=== PATIENT | male | born 1950 | race Caucasian/White ===

== ENCOUNTER 2016-07-26 15:04 | Inpatient (IN) | payer MEDICARE ==
[~2016-07-26] VITALS: Ht 180.3 cm; Wt 101.0 kg
--- NOTE | 2016-07-26 16:22 | REP ---
CT HEAD WITHOUT CONTRAST: HISTORY: Trauma. Areas of decreased attentuation are present in the periventricular and subcortical white matter. This represents small vessel ischemic disease. There is no intraparenchymal hemorrhage, mass, or midline shift. The ventricular system and cortical sulci as well as subarachnoid space and the posterior fossa are dilated consistent with moderate volume loss. There is no extracerebral collection. There is no fracture. The visualized sinuses are clear. IMPRESSION: 1. Small vessel ischemic disease. 2. Moderate volume loss. Signed by Josr Hernandez MD 07/26/2016 04:23 P
--- NOTE | 2016-07-26 16:22 | REP ---
Right knee series: Five views. History: Trauma. Findings: Five views of the right knee demonstrate diffuse osteopenia. There is an osteochondroma projecting posteriorly and medially from the proximal tibial metaphysis. This measures 1.8 cm in greatest dimension. There is vascular calcification. No evidence of erosive change or joint effusion. Impression: Posteromedial proximal tibial metaphyseal osteochondroma. No fracture seen. Signed by Fritz Medina MD 07/26/2016 04:56 P
--- NOTE | 2016-07-26 16:23 | REP ---
AP VIEW OF THE PELVIS: SINGLE VIEW. HISTORY: Trauma. FINDINGS: AP view of the pelvis demonstrates a right external iliac artery metallic stent in place. Vascular calcification is noted. The bony pelvic ring is intact. No pelvic fracture or hip fracture is appreciated. IMPRESSION: No traumatic abnormality is noted. Right external iliac artery stent in place. Signed by Fritz Medina MD 07/26/2016 04:56 P
--- NOTE | 2016-07-26 16:27 | REP ---
CT CERVICAL SPINE WITHOUT CONTRAST: HISTORY: Trauma. There is no acute fracture or subluxation. Disc bulges are present at the C3-4 through C5-6 levels. There is minimal narrowing of the spinal canal. Uncinate process hypertrophy is present at the C5-6 and C6-7 levels. This produces minimal narrowing of the neural foramina. The C5-6 and C6-7 intervertebral discs are decreased in height consistent with disc degeneration. IMPRESSION: 1. There is no acute fracture or subluxation. 2. There is cervical spondylosis at the C3-4 through C6-7 levels. Signed by Josr Hernandez MD 07/26/2016 04:29 P
[2016-07-26 17:48] LABS: BASO % 0.2 % (0.0-1.0); EOS % 0.4 % (0.0-3.0); LARGE UNSTAINED CELL # 0.1 K/mm3 (0.0-0.4); LARGE UNSTAINED CELL % 1.1 % (0.0-4.0); LYMPH # 1.8 K/mm3 (1.5-4.5); LYMPH % 15.2 % (24.0-44.0); MEAN CORPUSCULAR HEMOGLOBIN 28.2 pg (27.0-33.0); MEAN CORPUSCULAR HGB CONC 33.6 g/dl (32.0-36.5); MEAN CORPUSCULAR VOLUME 83.9 fl (80.0-96.0); MONO # 0.7 K/mm3 (0.0-0.8); MONO % 5.5 % (0.0-5.0); NEUTROPHILS # 9.4 K/mm3 (1.8-7.7); NEUTROPHILS % 77.6 % (36.0-66.0); PLATELET COUNT, AUTOMATED 244 k/mm3 (150-450); RED CELL DISTRIBUTION WIDTH 14.6 % (11.5-14.5); WHITE BLOOD COUNT 12.1 K/mm3 (4.0-10.0)
[2016-07-26 18:41] LABS: ALBUMIN 4.6 GM/DL (3.2-5.2); ALKALINE PHOSPHATASE 85 U/L (45-117); ALT/SGPT 31 U/L (12-78); ANION GAP 12 MEQ/L (8-16); AST/SGOT 37 U/L (15-37); BILIRUBIN,DIRECT < 0.1 MG/DL (0.0-0.2); BILIRUBIN,TOTAL 0.4 MG/DL (0.2-1.0); BLOOD UREA NITROGEN 32 MG/DL (7-18); CALCIUM LEVEL 9.8 MG/DL (8.8-10.2); CARBON DIOXIDE LEVEL 22 MEQ/L (21-32); CHLORIDE LEVEL 105 MEQ/L (98-107); CREATININE FOR GFR 1.79 MG/DL (0.70-1.30); GLOMERULAR FILTRATION RATE 40.6 (>49); GLUCOSE, FASTING 114 MG/DL (80-110); POTASSIUM SERUM 4.8 MEQ/L (3.5-5.1); SODIUM LEVEL 139 MEQ/L (136-145); TOTAL PROTEIN 9.2 GM/DL (6.4-8.2)
--- NOTE | 2016-07-26 18:52 | REP ---
RIGHT ANKLE SERIES: Four views of the right ankle are performed. I see no acute fracture or dislocation. The ankle mortise is anatomic. IMPRESSION: No acute fracture or dislocation. Signed by Nestor Dominguez MD 07/26/2016 07:36 P
[2016-07-26] MEDS ORDERED: LEVO50TA45 PO (19:11)
[2016-07-26] MEDS ORDERED: HYDR25TAB PO (19:11)
[2016-07-26] MEDS ORDERED: ASPI325T28 PO (19:11)
[2016-07-26] MEDS ORDERED: AMLO10TA2 PO (19:11)
[2016-07-26] MEDS ORDERED: LISI25TA PO (19:11)
[2016-07-26] MEDS ORDERED: METO5TAB2 PO (19:11)
[2016-07-26] MEDS ORDERED: TYLE500T78 PO (19:11)
[2016-07-26] MEDS ORDERED: COLA100C PO (19:11)
[2016-07-26] MEDS ORDERED: PANT40TA2 PO (19:11)
[2016-07-26] MEDS ORDERED: VITMTA PO (19:11)
[2016-07-26] MEDS ORDERED: METOCLOPRAMIDE 5 MG TAB PO PRN (19:45)
[2016-07-26] MEDS ORDERED: ACETAMINOPHEN TAB 650MG DOSE (2X325MG) PO PRN (19:45)
[2016-07-26] MEDS ORDERED: DOCUSATE SODIUM 100 MG CAP PO PRN (19:45)
[2016-07-26] MEDS ORDERED: ONDANSETRON 4MG/2ML VIAL (J2405) IV PRN (19:45)
--- NOTE | 2016-07-26 20:43 | HPE ---
DATE OF ADMISSION: 07/26/2016 PRIMARY CARE PROVIDER: [facility] in [place]. CHIEF COMPLAINT: Fall. 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 Lives at home alone. The patient was brought in today for multiple falls as per family. The patient has been getting progressively weaker over the past couple of months to the extent that the patient fell three times today. As per patient he fell because his ankle just felt painful and weak. Denies any head trauma, loss of consciousness. As per family, the patient has been deteriorating over the past couple of weeks. Also was incontinent. The family believes that the patient cannot take care of himself and is requesting placement. Other than that the patient denies any back pain, denies any tingling sensation, numbness. Stated that he could go to the bathroom, but he just had stood up. Denies any urinary or bowel incontinence. The patient stated that he fell because of the ankle pain, otherwise denies any weakness. Denies any chest pain, pressure or discomfort. ALLERGIES: No known drug allergy reported. PAST MEDICAL HISTORY: Hypothyroidism. CKD. Hypertension. PAST SURGICAL HISTORY: Left above knee amputation due to gangrene as per patient. SOCIAL HISTORY: Former smoker. Quit smoking 4 years ago. One pack per day for 18 to 20 years. Denies alcohol drinking. Lives at home alone. FAMILY HISTORY: Noncontributory. REVIEW OF SYSTEMS: Denies any headache, lightheadedness, vision change, hearing change. Denies any shortness of breath, nausea or vomiting. Denies any chest pain, pressure or discomfort. Denies any neck pain. Denies any back pain. Reported left ankle pain. Denies any abdominal pain, diarrhea, or constipation. As per family reported urinary incontinence. Denies any cough, shortness of breath. Denies any bleeding, bruising. Denies any urinary complaints. HOME MEDICATION: - acetaminophen 500 mg by mouth every 6 hours as needed - Norvasc 10 mg by mouth daily - aspirin 325 mg by mouth daily - Colace 100 mg by mouth twice a day - hydrochlorothiazide 25 mg by mouth daily - levothyroxine 50 mcg by mouth daily - lisinopril 2.5 mg by mouth daily - Reglan 5 mg by mouth four times a day as needed as needed - multivitamin 1 tablet by mouth daily - Protonix 40 mg by mouth daily PHYSICAL EXAMINATION: Orthostatic. The patient's orthostatic has been negative. VITAL SIGNS: Blood pressure 145/65, pulse 86, respirations 16, temperature 99, pulse oximetry 95% on room air. GENERAL: The patient alert, oriented times three. In no acute distress. HEENT: Normocephalic, atraumatic. NECK: Supple. PULMONARY: Bilateral clear to auscultation. CARDIAC: Regular rate and rhythm. Normal S1, S2. ABDOMEN: Soft, nontender, nondistended. . EXTREMITIES: Left above knee amputation. Stump clean, dry and intact. Right lower extremity straight leg test negative. Able to move right lower extremity. Right ankle as per patient is slightly swollen but no erythema or warmth detected. EKG: Sinus rhythm is 78. LABORATORY DATA: WBC 12.1, hemoglobin and hematocrit 14.4/42.7, platelets 244. Chemistry: Sodium 139, potassium 4.8, chloride 105, bicarbonate 22, BUN 32, creatinine 1.79, troponin negative times one. ASSESSMENT AND PLAN: This is a 66-year-old male patient with underlying medical history of hyperthyroidism, hypertension and CKD, admitted with acute on chronic renal failure. 1. Acute on chronic renal failure. Baseline creatinine as per our records 1.2. IV fluids for hydration, also ultrasound of the kidneys. Followup UA. Holding angiotensin-converting enzyme (PHILIPPE) inhibitor and hydrochlorothiazide. 2. Leukocytosis. Possible secondary to dehydration. WBC of 12. The patient has no other source of infection. Will get an x-ray of the chest. Followup blood culture. UA urine culture. Withholding antibiotic until a source of infection is established. IV fluids for hydration in the meantime. Followup C-reactive protein tomorrow. 3. Fall. Possible secondary to ankle pain versus alternative. Orthostatic is negative in the emergency department. IV fluids for hydration. Physical therapy. Patient and Family Services (PFS) consulted. Potentially need placement. 4. Hypothyroidism. Followup thyroid panel. Continue home medication. 5. Peripheral vascular disease. The patient has a history of left above knee amputation. Continue aspirin. Continue to follow. 6. Hypertension. Continue Norvasc. Withholding PHILIPPE inhibitor and hydrochlorothiazide given the patient with fall and given the patient was acute on chronic renal failure. Monitor blood pressure. Adjust medication as needed. 7. Deep venous thrombosis (DVT) prophylaxis. Heparin subcutaneous. 8. Right ankle pain. X-ray has been negative for fracture. Will obtain MRI. Continue physical therapy. Pain regimen as prescribed. DISPOSITION PLANNING: The patient has very poor venous access. Ultrasound used for guidance to put a IV on the patient's right peripheral cephalic vein. Will need a PICC line placement tomorrow. Likely PFS consulted. Likely needs placement.
--- NOTE | 2016-07-26 20:50 | EDDOCDS ---
Physician Documentation [facility] Name: Rl Ribera Age: 66 yrs Sex: Male : 1950 Arrival Date: 07/26/2016 Time: 15:04 Bed 14 Private MD: Disposition: 07/26/16 19:28 Hospitalization ordered by Desire Jeter for Inpatient Admission. Preliminary diagnosis is Weakness - Acute Kidney Injury. - Bed requested for 4 [place]. - Status is Inpatient Admission. ttb - Condition is Stable. - Problem is new. - Symptoms are unchanged. Historical: - Allergies: no known allergies; - Home Meds: 1. metoclopramide HCl 5 mg Oral tab 1 tab once daily (Last dose: 07/26/2016 08:00) 2. multivitamin Oral cap 1 tablet daily (Last dose: 07/26/2016 08:00) 3. hydrochlorothiazide 25 mg Oral tab 1 tab once daily (Last dose: 07/26/2016 08:00) 4. amlodipine 10 mg Oral tab 1 tab once daily (Last dose: 07/26/2016 08:00) 5. aspirin 325 mg Oral tab 1 tab once daily (Last dose: 07/26/2016 08:00) 6. lisinopril 5 mg Oral tab 1 tab once daily (Last dose: 07/26/2016 08:00) 7. levothyroxine 50 mcg Oral cap 1 cap once daily (Last dose: 07/26/2016 07:00) - PMHx: Hypothyroidism; Hypertension; - PSHx: AKA- Left; - Social history: Smoking status: Patient states former smoker of tobacco. Patient/guardian denies using alcohol, the patient reports quitting approximately [address], [address] drugs, No barriers to communication noted, The patient speaks fluent Romanian, Speaks appropriately for age. - Family history: Not pertinent. - : The pt / caregiver states he / she is not on anticoagulants. Home medication list is obtained from the patient. - Exposure Risk Screening:: None identified. - History obtained from: brother. Vital Signs: 07/26 15:16 BP 145 / 65 (auto/); ttb 15:17 Pulse 86 MON; Resp 18 S; Temp 99.0(O); Pulse Ox 95% ; Pain 2/10; ttb 15:30 Pulse 80 MON; Pulse Ox 94% on R/A; ttb 15:32 Pulse 80 MON; Pulse Ox 96% ; ttb 16:45 Pulse 78 MON; ttb 17:44 BP 113 / 55 Supine (auto/); ttb 17:47 Pulse 82 MON; Resp 18; Pulse Ox 96% on R/A; ttb 17:47 BP 156 / 66 Sitting (auto/); ttb 18:00 Pulse 90 MON; Pulse Ox 94% on R/A; ttb 18:30 Pulse 90 MON; ttb 19:00 Pulse 88 MON; Pulse Ox 93% ; ttb 19:30 Pulse 80 MON; Pulse Ox 93% ; ttb 20:03 BP 161 / 89 (auto/); ttb 20:03 Pulse 82 MON; Resp 18; Pulse Ox 93% on R/A; Pain 0/10; ttb 20:33 BP 156 / 72 (auto/); ttb 20:33 Pulse 84 MON; Pulse Ox 93% ; ttb 20:36 Pulse 84 MON; Resp 18; Temp 99.8(O); Pulse Ox 93% on R/A; Pain 0/10; ttb 20:45 BP 140 / 63; Pulse 86 MON; ttb MDM: 15:20 IV Saline Lock ordered. br1 15:20 Orthostatic VS ordered. br1 15:20 Cupola Man/Pulse Ox/q 30 min VS ordered. br1 15:21 CBC with Diff Ordered. EDMS 15:21 BMP Ordered. EDMS 15:21 Liver Profile Ordered. EDMS 15:21 Troponin Ordered. EDMS 15:21 ECG WITH READING ER PHYS+CARDIAG ordered. EDMS 15:21 Pelvis Ordered. EDMS 15:22 Knee, Complete Ordered. EDMS 15:22 Ankle, Complete Ordered. EDMS 15:33 CT Head Without Contrast Ordered. EDMS 15:33 CT Spine,Cervical W/o Contrast Ordered. EDMS 15:33 Misc. Nursing Order ordered. br1 17:58 CBC with Diff Reviewed. br1 17:58 Pelvis Reviewed. br1 17:58 Knee, Complete Reviewed. br1 17:58 CT Head Without Contrast Reviewed. br1 17:58 CT Spine,Cervical W/o Contrast Reviewed. br1 18:08 Urinalysis Ordered. EDMS 18:08 Urine Culture Ordered. EDMS 18:09 Consult PFS/PSA/Shelter Case Manager ordered. br1 18:10 BED REQUEST+ADM ordered. EDMS 18:44 BMP Reviewed. br1 18:44 Liver Profile Reviewed. br1 18:44 Troponin Reviewed. br1 19:03 [facility] Payment Agreement was scanned into [employer] and attached to record. gjb 19:03 Financial registration complete. gjb 19:45 BLOOD CULTURES Ordered. EDMS 19:45 MRI FOOT WITHOUT CONTRAST Ordered. EDMS 19:46 PHYSICAL THERAPY EVAL & TREAT ordered. EDMS 19:46 PICC LINE INSERTION W/SITERITE Ordered. EDMS 19:46 RENAL US Ordered. EDMS 19:47 THYROID PROFILE Ordered. EDMS 19:47 C REACTIVE PROTEIN QUANTITATIV Ordered. EDMS 19:47 COMPLETE BLOOD COUNT Ordered. EDMS 19:47 BASIC METABOLIC PROFILE Ordered. EDMS 19:47 MAGNESIUM LEVEL Ordered. EDMS 19:49 Admission / Observation Status ordered. EDMS 19:49 LOW FAT LOW CHOLESTEROL DIET ordered. EDMS 20:12 Chest, 2 view PA, Lat Ordered. EDMS Signatures: Dispatcher [employer] EDMS Chris Gaspar MD MD br1 Deborah Frnech, THREAD INSPECTOR THREAD INSPECTOR ar3 Raven Cabrera, RN RN ttClaribel Rudd The chart was reviewed and I authenticate all verbal orders and agree with the evaluation and treatment provided.Attachments: 19:03 [facility] Payment Agreement gjb MTDD
--- NOTE | 2016-07-26 20:50 | REPUSA ---
CLINICAL HISTORY: Acute on chronic kidney failure . TECHNIQUE: Realtime sonographic images were obtained in multiple projections. COMMENTS: The right kidney measures 11.5 cm and the left kidney measures 11.2 cm. Both kidneys are free of hydr onephrosis. There is no evidence of solid mass. 5.4 cm right lower pole simple appearing cyst. There is no perinephric fluid. There is no renal calculus. IMPRESSION: No stones or hydronephrosis. 5.4 cm right lower pole cyst. Thank you for your kind referral of this patient.
--- NOTE | 2016-07-26 20:51 | EDDOCDS ---
Nurse's Notes [facility] Name: Rl Ribera Age: 66 yrs Sex: Male : 1950 Arrival Date: 07/26/2016 Time: 15:04 Bed 14 Private MD: Diagnosis: Weakness-Acute Kidney Injury Presentation: 07/26 15:09 Presenting complaint: EMS states: weakness to right leg. Pt on floor upon EMS arrival. ttb Denies pain. Fell onto floor with no LOC. No neuro deficits. The last date and time the patient was known to be well was was at an unknown time on an unknown date. No acute neurological deficit is noted. Pre-hospital glucose is not applicable to this patient. Adult Sepsis Screening: The patient does not have new or worsening altered mentation. 15:09 Acuity: SAMMI Level 3 ttb 15:10 Adult Sepsis Screening: Patient's respiratory rate is less than 22. Systolic blood ttb pressure is greater than 100. Patient has a qSOFA score of 0- Negative Sepsis Screen. Suicide/Homicide risk assessment- the patient denies having any suicidal and/or homicidal ideations and does not present with any other emotional, behavioral or mental health complaints. Status: Patient is not a government services professional or dependent. Transition of care: patient was not received from another setting of care. 17:39 Method Of Arrival: Ambulance ttb Triage Assessment: 15:35 The onset of the patients symptoms was at an unknown time. General: Appears in no ttb apparent distress, obese, unkempt, Behavior is appropriate for age, cooperative, pleasant, quiet. Pain: Location: right ankle. Neurological: Level of Consciousness is awake, alert, Oriented to person, place, time, Padded Box Sewer are equal bilaterally Moves all extremities. Speech is normal, Facial symmetry appears normal, Pupils are constricted, Reports weakness. Cardiovascular: Heart tones S1 S2 present Rhythm is sinus rhythm Chest pain is denied. Respiratory: Airway is patent Respiratory effort is even, unlabored, Denies cough, shortness of breath. GI: Denies nausea, vomiting, pain. : Parent/caregiver report the patient having incontinence. Derm: Skin is normal. Injury Description: pt fell from standing. Historical: - Allergies: no known allergies; - Home Meds: 1. metoclopramide HCl 5 mg Oral tab 1 tab once daily (Last dose: 07/26/2016 08:00) 2. multivitamin Oral cap 1 tablet daily (Last dose: 07/26/2016 08:00) 3. hydrochlorothiazide 25 mg Oral tab 1 tab once daily (Last dose: 07/26/2016 08:00) 4. amlodipine 10 mg Oral tab 1 tab once daily (Last dose: 07/26/2016 08:00) 5. aspirin 325 mg Oral tab 1 tab once daily (Last dose: 07/26/2016 08:00) 6. lisinopril 5 mg Oral tab 1 tab once daily (Last dose: 07/26/2016 08:00) 7. levothyroxine 50 mcg Oral cap 1 cap once daily (Last dose: 07/26/2016 07:00) - PMHx: Hypothyroidism; Hypertension; - PSHx: AKA- Left; - Social history: Smoking status: Patient states former smoker of tobacco. Patient/guardian denies using alcohol, the patient reports quitting approximately [address], [address] drugs, No barriers to communication noted, The patient speaks fluent [place], Speaks appropriately for age. - Family history: Not pertinent. - : The pt / caregiver states he / she is not on anticoagulants. Home medication list is obtained from the patient. - Exposure Risk Screening:: None identified. - History obtained from: brother. Screenin:37 Screening information is obtained from the patient. Fall risk: At risk due to age, ttb apparent cognitive impairment, gait disturbance, immobility, injury, prior history of falls, The following interventions are performed due to a positive Fall Risk Screen: Fall Risk is added to Special Handling on the patient Summary Screen. A Fall Risk Bracelet was applied to the patient. Side Rails are placed in the up position. A Call Herrera is given with instruction to call for help when getting out of bed. Assistance ADL's: Requires assistance with meal preparation, this assistance is provided by bathing, assistance is provided by dressing, assistance is provided by toileting, assistance is provided by ambulation, assistance is provided by housework, assistance is provided by medication administration, assistance is provided by Public Health nurses. Abuse/DV Screen: The patient / caregiver reports he/she is: not in a situation that causes fear, pain or injury. Nutritional screening: No deficits noted. Advance Directives: Currently, there is no health care proxy. home support is inadequate. Assessment: 15:15 Adult Sepsis Screening: The patient does not have new or worsening altered mentation. ttb Patient's respiratory rate is less than 22. Systolic blood pressure is greater than 100. Patient has a qSOFA score of 0- Negative Sepsis Screen. General: MD in with pt at this time. NAD noted. Pt answering questions appropriately. Resting on stretcher. . 15:37 General: pt taken to imaging at this time.. ttb 16:28 Reassessment: Patient appears in no apparent distress at this time. pt resting on ttb stretcher. IV attempts at this time have been unsuccessful. Brother at bedside. NAD noted.. Neurological: Level of Consciousness is awake, alert. Respiratory: Airway is patent Respiratory effort is even, unlabored. Derm:. Derm: skin tear to left arm -- no bleeding upon arrival. Minimal swelling. 17:00 Reassessment: Patient appears in no apparent distress at this time. pt continues to ttb rest on stretcher. Brother at bedside. NAD noted. SR on monitor. Lab contacted to draw labs. . 17:00 General: Appears in no apparent distress, comfortable. Pain: Denies pain. Neurological: ttb Level of Consciousness is awake, alert. Respiratory: Airway is patent Respiratory effort is even, unlabored. 17:30 General: lab successful with lab draws. No IV access at this time. aware. Pt resting ttb on stretcher. NAD noted. Denies pain, SOB, new weakness.. 17:45 Adult Sepsis Screening: The patient does not have new or worsening altered mentation. ttb Patient's respiratory rate is less than 22. Systolic blood pressure is greater than 100. Patient has a qSOFA score of 0- Negative Sepsis Screen. 17:54 Reassessment: Patient appears in no apparent distress at this time. General: pt refuses ttb to stand to do orthostatic vital signs. States his ankle is too painful when standing on it. aware. Brother at bedside. NAD noted with pt. Watching TV. Appears comfortable.. Cardiovascular: Rhythm is sinus rhythm. 18:18 General: Appears in no apparent distress, comfortable, Behavior is appropriate for age, jmb Patient laying on stretcher, in to see patient, patient attempting urine specimen. NO voiced complaints at this time. . Neurological: Level of Consciousness is awake, alert, obeys commands, Oriented to person, place, time, Speech is normal. Respiratory: Airway is patent Respiratory effort is even, unlabored, Respiratory pattern is regular, symmetrical. 18:30 General: Hospitalist in to speak with pt and his brother. Pt changed, incont of urine.. ttb 19:15 Reassessment: Patient appears in no apparent distress at this time. 20G placed by Dr. quintero He US assisted. Flushed well. Wrapped. Pt tolerated well. Pt resting on stretcher. NAD noted. SR on monitor. Denies pain. Awake and alert.. 20:15 General: pt returned from imaging. NAD noted. Awake and alert. SBAR sent to floor.. ttb 20:27 Adult Sepsis Screening: The patient does not have new or worsening altered mentation. ttb Patient's respiratory rate is less than 22. Systolic blood pressure is greater than 100. Patient has a qSOFA score of 0- Negative Sepsis Screen. 20:48 Reassessment: Patient appears in no apparent distress at this time. Patient denies pain ttb at this time. Patient states feeling better. Patient states symptoms have improved. pt states he is ready for transfer to floor. Brother remains at bedside. RN to receive pt. . General: Appears in no apparent distress, comfortable. Neurological: Level of Consciousness is awake, alert. Cardiovascular: Chest pain is denied. Respiratory: Airway is patent Respiratory effort is even, unlabored. GI: Denies nausea, vomiting, pain. 20:49 General:. ttb Social Work Consult: 19:51 Social Work Note: Met with Pt and Pt's Brother; Karri, at bedside per request Dr. uma Gaspar. Pt was A&O, calm and cooperative. denied SI/HI, denied AH/VH. Pt stated unknown how he hurt his ankle, and denies he needs additional help in the home. Pt's Brother is concerned for Pt's ability to care for himself. Pt has made several calls to EMS for help in the last 2 months. Norm requested to be involved in Pt's D/C plan. 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 uma Vital Signs: 15:16 BP 145 / 65 (auto/); ttb 15:17 Pulse 86 MON; Resp 18 S; Temp 99.0(O); Pulse Ox 95% ; Pain 2/10; ttb 15:30 Pulse 80 MON; Pulse Ox 94% on R/A; ttb 15:32 Pulse 80 MON; Pulse Ox 96% ; ttb 16:45 Pulse 78 MON; ttb 17:44 BP 113 / 55 Supine (auto/); ttb 17:47 Pulse 82 MON; Resp 18; Pulse Ox 96% on R/A; ttb 17:47 BP 156 / 66 Sitting (auto/); ttb 18:00 Pulse 90 MON; Pulse Ox 94% on R/A; ttb 18:30 Pulse 90 MON; ttb 19:00 Pulse 88 MON; Pulse Ox 93% ; ttb 19:30 Pulse 80 MON; Pulse Ox 93% ; ttb 20:03 BP 161 / 89 (auto/); ttb 20:03 Pulse 82 MON; Resp 18; Pulse Ox 93% on R/A; Pain 0/10; ttb 20:33 BP 156 / 72 (auto/); ttb 20:33 Pulse 84 MON; Pulse Ox 93% ; ttb 20:36 Pulse 84 MON; Resp 18; Temp 99.8(O); Pulse Ox 93% on R/A; Pain 0/10; ttb 20:45 BP 140 / 63; Pulse 86 MON; ttb Vitals: 15:35 Log In Time N/A - ambulance arrival. ttb 16:00 Glucose Measurement none. ttb ED Course: 15:05 Patient visited by Zoë Castro, Pricing Director. lbd 15:05 Patient moved to Waiting lbd 15:06 Patient moved to 14 lbd 15:08 Chris Gaspar MD is Attending Physician. br1 15:12 Triage Initiated ttb 15:21 Patient visited by Chris Gaspar MD. br1 15:23 Patient visited by Raven Cabrera RN. ttb 15:33 Patient visited by Avinash Baker. jml1 15:33 EKG done. (by ED staff). Reviewed by Chris Gaspar MD. jml1 15:37 The patient / caregiver is instructed regarding the plan of care and ED course. ttb Accompanied by Family Member, Patient has correct armband on for positive identification. Bed in low position. Call light in reach. Side rails up X 1. Side rails up X2. quality assurance monitor body on. Pulse ox on. NIBP on. 15:38 Patient visited by Raven Cabrera RN. ttb 16:28 Patient visited by Raven Cabrera RN. ttb 16:40 Knee, Complete Returned. EDMS 16:40 CT Head Without Contrast Returned. EDMS 16:40 Pelvis Returned. EDMS 16:40 CT Spine,Cervical W/o Contrast Returned. EDMS 17:09 Patient visited by Raven Cabrera RN. ttb 17:40 Patient visited by Raven Cabrera RN. ttb 17:41 Troponin Sent. ttb 17:41 Liver Profile Sent. ttb 17:41 BMP Sent. ttb 17:41 CBC with Diff Sent. ttb 17:41 Wound care to abrasion, located on left FA was cleaned with soap and water, irrigated ttb with normal saline, dressed with Kerlix, Patient tolerated well. 17:42 Patient visited by Raven Cabrera RN. ttb 17:56 Patient visited by Raven Cabrera RN. ttb 18:19 Patient visited by Caleb Barry RN. jmb 19:03 [facility] Payment Agreement was scanned into [employer] and attached to record. gjb 19:12 Patient visited by Cecil Galindo PCA. kb5 19:20 Patient visited by Raven Cabrera RN. ttb 19:20 Inserted peripheral IV: in right upper arm. Patient tolerated the procedure well. ttb 19:20 Assisted Provider with peripheral IV placement via US. ttb 19:25 Patient name changed from Rl\S\\S\Bacilio\S\ to Rl\S\ \S\Bacilio. EDMS 19:28 Desire Jeter is Hospitalizing Provider. br1 19:39 Ankle, Complete Returned. EDMS 20:06 Patient moved to Ultrasound br3 20:22 Patient visited by Cecil Galindo PCA. kb5 20:25 Patient moved to 14 br3 20:27 Patient visited by Raven Cabrera RN. ttb Order Results: Lab Order: CBC with Diff; SPEC'M 07/26/16 17:36 Test: WHITE BLOOD COUNT; Value: 12.1; Range: 4.0-10.0; Abnormal: Above high normal; Units: K/mm3; Status: F Test: RED BLOOD COUNT; Value: 5.10; Range: 4.30-6.10; Units: M/mm3; Status: F Test: HEMOGLOBIN; Value: 14.4; Range: 14.0-18.0; Units: g/dl; Status: F Test: HEMATOCRIT; Value: 42.7; Range: 42.0-52.0; Units: %; Status: F Test: MEAN CORPUSCULAR VOLUME; Value: 83.9; Range: 80.0-96.0; Units: fl; Status: F Test: MEAN CORPUSCULAR HEMOGLOBIN; Value: 28.2; Range: 27.0-33.0; Units: pg; Status: F Test: MEAN CORPUSCULAR HGB CONC; Value: 33.6; Range: 32.0-36.5; Units: g/dl; Status: F Test: RED CELL DISTRIBUTION WIDTH; Value: 14.6; Range: 11.5-14.5; Abnormal: Above high normal; Units: %; Status: F Test: PLATELET COUNT, AUTOMATED; Value: 244; Range: 150-450; Units: k/mm3; Status: F Test: NEUTROPHILS %; Value: 77.6; Range: 36.0-66.0; Abnormal: Above high normal; Units: %; Status: F Test: LYMPH %; Value: 15.2; Range: 24.0-44.0; Abnormal: Below low normal; Units: %; Status: F Test: MONO %; Value: 5.5; Range: 0.0-5.0; Abnormal: Above high normal; Units: %; Status: F Test: EOS %; Value: 0.4; Range: 0.0-3.0; Units: %; Status: F Test: BASO %; Value: 0.2; Range: 0.0-1.0; Units: %; Status: F Test: LARGE UNSTAINED CELL %; Value: 1.1; Range: 0.0-4.0; Units: %; Status: F Test: NEUTROPHILS #; Value: 9.4; Range: 1.8-7.7; Abnormal: Above high normal; Units: K/mm3; Status: F Test: LYMPH #; Value: 1.8; Range: 1.5-4.5; Units: K/mm3; Status: F Test: MONO #; Value: 0.7; Range: 0.0-0.8; Units: K/mm3; Status: F Test: EOS #; Value: 0.0; Range: 0.0-0.50; Units: K/mm3; Status: F Test: BASO #; Value: 0.0; Range: 0.0-0.2; Units: K/mm3; Status: F Test: LARGE UNSTAINED CELL #; Value: 0.1; Range: 0.0-0.4; Units: K/mm3; Status: F Lab Order: BMP; SPEC'M 07/26/16 18:08 Test: GLUCOSE, FASTING; Value: 114; Range: 80-110; Abnormal: Above high normal; Units: MG/DL; Status: F Test: BLOOD UREA NITROGEN; Value: 32; Range: 7-18; Abnormal: Above high normal; Units: MG/DL; Status: F Test: CREATININE FOR GFR; Value: 1.79; Range: 0.70-1.30; Abnormal: Above high normal; Units: MG/DL; Status: F Test: GLOMERULAR FILTRATION RATE; Value: 40.6; Range: >49; Abnormal: Below low normal; Status: F Test: SODIUM LEVEL; Value: 139; Range: 136-145; Units: MEQ/L; Status: F Test: POTASSIUM SERUM; Value: 4.8; Range: 3.5-5.1; Units: MEQ/L; Status: F Test: CHLORIDE LEVEL; Value: 105; Range: 98-107; Units: MEQ/L; Status: F Test: CARBON DIOXIDE LEVEL; Value: 22; Range: 21-32; Units: MEQ/L; Status: F Test: ANION GAP; Value: 12; Range: 8-16; Units: MEQ/L; Status: F Test: CALCIUM LEVEL; Value: 9.8; Range: 8.8-10.2; Units: MG/DL; Status: F Test Note: ; Units are mL/min/1.73 m2 Chronic Kidney Disease Staging per NKF: Stage I & II GFR >=60 Normal to Mildly Decreased Stage III GFR 30-59 Moderately Decreased Stage IV GFR 15-29 Severely Decreased Stage V GFR <15 Very Little GFR Left ESRD GFR <15 on RADIATION ONCOLOGY MANAGER Lab Order: Liver Profile; SPEC'M 07/26/16 18:08 Test: AST/SGOT; Value: 37; Range: 15-37; Units: U/L; Status: F Test: ALT/SGPT; Value: 31; Range: 12-78; Units: U/L; Status: F Test: ALKALINE PHOSPHATASE; Value: 85; Range: 45-117; Units: U/L; Status: F Test: BILIRUBIN,TOTAL; Value: 0.4; Range: 0.2-1.0; Units: MG/DL; Status: F Test: BILIRUBIN,DIRECT; Value: < 0.1; Range: 0.0-0.2; Units: MG/DL; Status: F Test: TOTAL PROTEIN; Value: 9.2; Range: 6.4-8.2; Abnormal: Above high normal; Units: GM/DL; Status: F Test: ALBUMIN; Value: 4.6; Range: 3.2-5.2; Units: GM/DL; Status: F Test: ALBUMIN/GLOBULIN RATIO; Value: 1.00; Range: 1.00-1.93; Status: F Lab Order: Troponin; SPEC'M 07/26/16 18:08 Test: TROPONIN I; Value: < 0.02; Range: < 0.10; Units: NG/ML; Status: F Test Note: ; Troponin I Reference Interval for [place] LOCI: 99th Percentile= 0.00-0.045 ng/ml Risk Stratification: <= 0.10 ng/ml Decreased Risk for Adverse Clinical Events. 0.10-1.50 ng/ml Increased Risk for Adverse Clinical Events. Evaluation of additional criterion and/or repeat testing in 2-6 hours is suggested to rule out myocardial damage. >= 1.50 ng/ml Indicative of Myocardial Injury. Radiology Order: Pelvis Test: Pelvis REASON FOR EXAMINATION: Trauma; AP VIEW OF THE PELVIS: SINGLE VIEW.; ; HISTORY: Trauma.; ; FINDINGS: AP view of the pelvis demonstrates a right external iliac artery; metallic stent in place. Vascular calcification is noted. The bony pelvic ring; is intact. No pelvic fracture or hip fracture is appreciated.; ; IMPRESSION:; ; No traumatic abnormality is noted. Right external iliac artery stent in place.; ; ; Signed by; Fritz Medina MD 07/26/2016 04:56 P; Radiology Order: Knee, Complete Test: Knee, Complete REASON FOR EXAMINATION: Trauma; Right knee series: Five views.; ; History: Trauma.; ; Findings: Five views of the right knee demonstrate diffuse osteopenia. There is; an osteochondroma projecting posteriorly and medially from the proximal tibial; metaphysis. This measures 1.8 cm in greatest dimension. There is vascular; calcification. No evidence of erosive change or joint effusion.; ; Impression:; ; Posteromedial proximal tibial metaphyseal osteochondroma. No fracture seen.; ; ; Signed by; Fritz Medina MD 07/26/2016 04:56 P; Radiology Order: Ankle, Complete Test: Ankle, Complete REASON FOR EXAMINATION: Trauma; RIGHT ANKLE SERIES:; ; Four views of the right ankle are performed. I see no acute fracture or; dislocation. The ankle mortise is anatomic.; ; IMPRESSION:; ; No acute fracture or dislocation.; ; ; Signed by; Nestor Dominguez MD 07/26/2016 07:36 P; Radiology Order: CT Head Without Contrast Test: CT Head Without Contrast REASON FOR EXAMINATION: Trauma; CT HEAD WITHOUT CONTRAST:; ; HISTORY: Trauma.; ; Areas of decreased attentuation are present in the periventricular and; subcortical white matter. This represents small vessel ischemic disease. There is; no intraparenchymal hemorrhage, mass, or midline shift. The ventricular system; and cortical sulci as well as subarachnoid space and the posterior fossa are; dilated consistent with moderate volume loss. There is no extracerebral; collection. There is no fracture. The visualized sinuses are clear.; ; IMPRESSION:; ; 1. Small vessel ischemic disease.; ; 2. Moderate volume loss.; ; ; Signed by; Josr Hernandez MD 07/26/2016 04:23 P; Radiology Order: CT Spine,Cervical W/o Contrast Test: CT Spine,Cervical W/o Contrast REASON FOR EXAMINATION: Trauma; CT CERVICAL SPINE WITHOUT CONTRAST:; ; HISTORY: Trauma.; ; There is no acute fracture or subluxation. Disc bulges are present at the C3-4; through C5-6 levels. There is minimal narrowing of the spinal canal. Uncinate; process hypertrophy is present at the C5-6 and C6-7 levels. This produces; minimal narrowing of the neural foramina. The C5-6 and C6-7 intervertebral discs; are decreased in height consistent with disc degeneration.; ; IMPRESSION:; ; 1. There is no acute fracture or subluxation.; ; 2. There is cervical spondylosis at the C3-4 through C6-7 levels.; ; ; Signed by; Josr Hernandez MD 07/26/2016 04:29 P; Outcome: 15:37 CT Study completed. ttb 17:40 Discharge Assessment: patient administered narcotics -. ttb 19:28 Decision to Hospitalize by Provider. br1 20:25 The following High Risk Discharge criteria are identified: Yes, admit. Admitted to ttb Med/Surg accompanied by tech, family with patient, via stretcher, with chart. Condition: stable. Admission hand-off: Report called to Lorraine Arteaga RN Report Faxed Fax receipt verified by [id number]. Property :Personal belongings accompany Pt. 20:49 Patient left the ED. ttb Signatures: Dispatcher [employer] EDMS Zoë Castro, Pricing Director Unit lbd Musa, Yvette, PSA PSA rb Cecil Galindo, PUBLIC HEALTH ANALYST PUBLIC HEALTH ANALYST kb5 Chris Gaspar MD MD br1 Ilene Martino br3 Avinash Baker jml1 Raven Cabrera RN RN Caleb Thomas RN RN Claribel Babcock MTDTiffani
[2016-07-26 21:55] VITALS: BP 145/67
[2016-07-26] MEDS: SENOKOT S TAB PO SCH (22:04)
[2016-07-26] MEDS: HEPARIN SOD (PORCINE) 5000 UNITS/ML VIAL SC SCH (22:04)
[2016-07-26] MEDS: NS 1,000 ML IV SCH (22:05)
[2016-07-27 06:00] VITALS: BP 137/63
[2016-07-27 06:57] LABS: MEAN CORPUSCULAR HGB CONC 33.2 g/dl (32.0-36.5); MEAN CORPUSCULAR VOLUME 84.2 fl (80.0-96.0); RED CELL DISTRIBUTION WIDTH 14.6 % (11.5-14.5); WHITE BLOOD COUNT 8.3 K/mm3 (4.0-10.0)
[2016-07-27 07:24] LABS: CALCIUM LEVEL 8.5 MG/DL (8.8-10.2); CREATININE FOR GFR 1.42 MG/DL (0.70-1.30); GLOMERULAR FILTRATION RATE 53.1 (>49); POTASSIUM SERUM 3.6 MEQ/L (3.5-5.1); THYROXINE (T4) 10.6 UG/DL (4.5-12.0)
--- NOTE | 2016-07-27 08:44 | ECGEPIP ---
Stationary ECG Study [facility] - ED Test Date: 2016-07-26 Pat Name: CIARA BOJORQUEZ Department: Room: - Gender: M Emulsion Coater: JKaren : 1950 Requested By: SANDY Flynn Order Number: [id number] Reading MD: Lisa Benton Measurements Intervals [place] Rate: 78 P: 9 CT: 180 QRS: -19 QRSD: 68 T: -24 QT: 346 QTc: 396 Interpretive Statements SINUS RHYTHM NONSPECIFIC ST & T-WAVE ABNORMALITY INCREASED RATE 03/27/14 Electronically Signed On 07-27-2016 8:44:41 EST by Lisa Benton
[2016-07-27] MEDS ORDERED: PANTOPRAZOLE 40MG TAB (PROTONIX) PO SCH (09:00)
[2016-07-27] MEDS ORDERED: hydroCHLOROthiazide 25 MG TAB PO SCH (09:00)
--- NOTE | 2016-07-27 09:35 | REP ---
TWO VIEW CHEST: Two views of the chest are performed and compared to a prior study of 03/27/2014. There appears to be mild bibasilar interstitial fibrotic change. There is no consolidating infiltrate. The heart does not appear to be significantly enlarged. The mediastinal silhouette is unremarkable and unchanged. There are minor degenerative changes of the spine. IMPRESSION: No acute infiltrate. Mild chronic changes in the lung bases. Signed by Nestor Dominguez MD 07/27/2016 04:41 P
[2016-07-27] MEDS: PANTOPRAZOLE 40MG TAB (PROTONIX) PO SCH (10:09)
[2016-07-27] MEDS: HEPARIN SOD (PORCINE) 5000 UNITS/ML VIAL SC SCH ×2 (10:09→20:46)
[2016-07-27] MEDS: MULTIVITAMINS/MINERALS THERAP 1 TAB PO SCH (10:10)
[2016-07-27] MEDS: LEVOTHYROXINE 0.05 MG TAB (50 MCG) PO SCH (10:10)
[2016-07-27] MEDS: SENOKOT S TAB PO SCH ×2 (10:10→20:45)
[2016-07-27] MEDS: ASPIRIN ENTERIC 325 MG TAB PO SCH (10:11)
[2016-07-27] MEDS: NS 1,000 ML IV SCH ×2 (10:12→20:45)
[2016-07-27] MEDS: amLODIPine 10 MG TAB PO SCH (10:13)
[2016-07-27] MEDS: NYSTATIN 100,000 UNITS/GM TOPICAL PWD 15 GM TOP SCH ×2 (10:13→20:46)
--- NOTE | 2016-07-27 11:56 | REP ---
MRI right ankle without contrast: History: Right ankle pain. The patient reports a fall. Comparison radiographs July 26, 2016. Technique: Axial, sagittal and coronal imaging planes are utilized for T1 and T2-weighted scans obtained in the usual fashion with and without fat saturation. MRI findings: Cortical and medullary bone signal intensity are normal. No evidence of occult fracture seen. There is a small zone of subcortical marrow edema in the posterior aspect of the tibial plafond with some overlying articular cartilage irregularity. Talar dome is unremarkable. There is an ankle joint effusion small to moderate. No loose body is appreciated. The anterior talofibular ligament is not well seen compatible with previous injury. The anterior inferior tibiofibular ligament appears intact. Posterior talofibular and posterior inferior tibiofibular ligaments appear intact. The calcaneofibular and deltoid ligamentous complexes appear intact. The Achilles tendon shows no abnormality. There is some edema in the pre-Achilles fat however question inflammation or peritonitis. No flexion or extension tendinopathy is seen. Plantar fascia is smooth. Subtalar articulation is unremarkable. No tarsal bony abnormality is seen. Impression: 1. Ankle joint effusion question synovitis. 2. 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 3. Poorly visualized anterior talofibular ligament, question old injury. 4. Pre Achilles tendon fat edema. Signed by Fritz Medina MD 07/27/2016 01:24 P
[2016-07-27 22:00] VITALS: BP 132/61
[2016-07-28 06:00] VITALS: BP 149/68
[2016-07-28 06:28] LABS: MEAN CORPUSCULAR HEMOGLOBIN 27.7 pg (27.0-33.0); MEAN CORPUSCULAR HGB CONC 32.9 g/dl (32.0-36.5); MEAN CORPUSCULAR VOLUME 84.3 fl (80.0-96.0); RED CELL DISTRIBUTION WIDTH 14.7 % (11.5-14.5); WHITE BLOOD COUNT 8.4 K/mm3 (4.0-10.0)
[2016-07-28 06:31] LABS: CALCIUM LEVEL 8.8 MG/DL (8.8-10.2); CREATININE FOR GFR 1.35 MG/DL (0.70-1.30); GLOMERULAR FILTRATION RATE 56.3 (>49); MAGNESIUM LEVEL 1.9 MG/DL (1.8-2.4); POTASSIUM SERUM 4.1 MEQ/L (3.5-5.1)
[2016-07-28] MEDS: NS 1,000 ML IV SCH ×3 (06:50→20:26)
[2016-07-28] MEDS: LEVOTHYROXINE 0.05 MG TAB (50 MCG) PO SCH (09:55)
[2016-07-28] MEDS: MULTIVITAMINS/MINERALS THERAP 1 TAB PO SCH (09:55)
[2016-07-28] MEDS: ASPIRIN ENTERIC 325 MG TAB PO SCH (09:55)
[2016-07-28] MEDS: SENOKOT S TAB PO SCH ×2 (09:55→20:26)
[2016-07-28] MEDS: PANTOPRAZOLE 40MG TAB (PROTONIX) PO SCH (09:55)
[2016-07-28] MEDS: amLODIPine 10 MG TAB PO SCH (09:57)
[2016-07-28] MEDS: HEPARIN SOD (PORCINE) 5000 UNITS/ML VIAL SC SCH ×2 (09:58→20:26)
[2016-07-28] MEDS: NYSTATIN 100,000 UNITS/GM TOPICAL PWD 15 GM TOP SCH ×2 (09:58→20:27)
[2016-07-28 14:00] VITALS: BP 137/68
--- NOTE | 2016-07-28 21:50 | EDDOCDS ---
Physician Documentation [facility] Name: Rl Ribera Age: 66 yrs Sex: Male : 1950 Arrival Date: 07/26/2016 Time: 15:04 Bed 14 Private MD: Disposition: 07/26/16 19:28 Hospitalization ordered by Desire Jeter for Inpatient Admission. Preliminary diagnosis is Weakness - Acute Kidney Injury. - Bed requested for 4 [place]. - Status is Inpatient Admission. ttb - Condition is Stable. - Problem is new. - Symptoms are unchanged. Historical: - Allergies: no known allergies; - Home Meds: 1. metoclopramide HCl 5 mg Oral tab 1 tab once daily (Last dose: 07/26/2016 08:00) 2. multivitamin Oral cap 1 tablet daily (Last dose: 07/26/2016 08:00) 3. hydrochlorothiazide 25 mg Oral tab 1 tab once daily (Last dose: 07/26/2016 08:00) 4. amlodipine 10 mg Oral tab 1 tab once daily (Last dose: 07/26/2016 08:00) 5. aspirin 325 mg Oral tab 1 tab once daily (Last dose: 07/26/2016 08:00) 6. lisinopril 5 mg Oral tab 1 tab once daily (Last dose: 07/26/2016 08:00) 7. levothyroxine 50 mcg Oral cap 1 cap once daily (Last dose: 07/26/2016 07:00) - PMHx: Hypothyroidism; Hypertension; - PSHx: AKA- Left; - Social history: Smoking status: Patient states former smoker of tobacco. Patient/guardian denies using alcohol, the patient reports quitting approximately 4 years ago, [address] drugs, No barriers to communication noted, The patient speaks fluent German, Speaks appropriately for age. - Family history: Not pertinent. - : The pt / caregiver states he / she is not on anticoagulants. Home medication list is obtained from the patient. - Exposure Risk Screening:: None identified. - History obtained from: brother. Vital Signs: 07/26 15:16 BP 145 / 65 (auto/); ttb 15:17 Pulse 86 MON; Resp 18 S; Temp 99.0(O); Pulse Ox 95% ; Pain 2/10; ttb 15:30 Pulse 80 MON; Pulse Ox 94% on R/A; ttb 15:32 Pulse 80 MON; Pulse Ox 96% ; ttb 16:45 Pulse 78 MON; ttb 17:44 BP 113 / 55 Supine (auto/); ttb 17:47 Pulse 82 MON; Resp 18; Pulse Ox 96% on R/A; ttb 17:47 BP 156 / 66 Sitting (auto/); ttb 18:00 Pulse 90 MON; Pulse Ox 94% on R/A; ttb 18:30 Pulse 90 MON; ttb 19:00 Pulse 88 MON; Pulse Ox 93% ; ttb 19:30 Pulse 80 MON; Pulse Ox 93% ; ttb 20:03 BP 161 / 89 (auto/); ttb 20:03 Pulse 82 MON; Resp 18; Pulse Ox 93% on R/A; Pain 0/10; ttb 20:33 BP 156 / 72 (auto/); ttb 20:33 Pulse 84 MON; Pulse Ox 93% ; ttb 20:36 Pulse 84 MON; Resp 18; Temp 99.8(O); Pulse Ox 93% on R/A; Pain 0/10; ttb 20:45 BP 140 / 63; Pulse 86 MON; ttb MDM: 15:20 IV Saline Lock ordered. br1 15:20 Orthostatic VS ordered. br1 15:20 Residential Door Unit Installer/Pulse Ox/q 30 min VS ordered. br1 15:21 CBC with Diff Ordered. EDMS 15:21 BMP Ordered. EDMS 15:21 Liver Profile Ordered. EDMS 15:21 Troponin Ordered. EDMS 15:21 ECG WITH READING ER PHYS+CARDIAG ordered. EDMS 15:21 Pelvis Ordered. EDMS 15:22 Knee, Complete Ordered. EDMS 15:22 Ankle, Complete Ordered. EDMS 15:33 CT Head Without Contrast Ordered. EDMS 15:33 CT Spine,Cervical W/o Contrast Ordered. EDMS 15:33 Misc. Nursing Order ordered. br1 17:58 CBC with Diff Reviewed. br1 17:58 Pelvis Reviewed. br1 17:58 Knee, Complete Reviewed. br1 17:58 CT Head Without Contrast Reviewed. br1 17:58 CT Spine,Cervical W/o Contrast Reviewed. br1 18:08 Urinalysis Ordered. EDMS 18:08 Urine Culture Ordered. EDMS 18:09 Consult PFS/PSA/Manager Animation ordered. br1 18:10 BED REQUEST+ADM ordered. EDMS 18:44 BMP Reviewed. br1 18:44 Liver Profile Reviewed. br1 18:44 Troponin Reviewed. br1 19:03 [facility] [place] Payment Agreement was scanned into [employer] and attached to record. gjb 19:03 Financial registration complete. gjb 19:45 BLOOD CULTURES Ordered. EDMS 19:45 MRI FOOT WITHOUT CONTRAST Ordered. EDMS 19:46 PHYSICAL THERAPY EVAL & TREAT ordered. EDMS 19:46 PICC LINE INSERTION W/SITERITE Ordered. EDMS 19:46 RENAL US Ordered. EDMS 19:47 THYROID PROFILE Ordered. EDMS 19:47 C REACTIVE PROTEIN QUANTITATIV Ordered. EDMS 19:47 COMPLETE BLOOD COUNT Ordered. EDMS 19:47 BASIC METABOLIC PROFILE Ordered. EDMS 19:47 MAGNESIUM LEVEL Ordered. EDMS 19:49 Admission / Observation Status ordered. EDMS 19:49 LOW FAT LOW CHOLESTEROL DIET ordered. EDMS 20:12 Chest, 2 view PA, Lat Ordered. EDMS 07/27 03:51 T-Sheet-- Draft Copy was scanned into [employer] and attached to record. lja 09:43 ECG/EKG was scanned into [employer] and attached to record. gb 09:43 Radiology Report was scanned into [employer] and attached to record. gb 09:43 PCR was scanned into [employer] and attached to record. gb Signatures: Dispatcher [employer] EDNM Deidra Duval, Reg Reg Chris Christopher MD MD br1 Deborah French, MILLWRIGHT HELPER MILLWRIGHT HELPER ar3 Raven Cabrera, RN RN ttb Arel, Claribel Ennis The chart was reviewed and I authenticate all verbal orders and agree with the evaluation and treatment provided.Attachments: 07/26 19:03 [facility] [place] Payment Agreement gjb 07/27 03:51 T-Sheet-- Draft Copy lja 09:43 ECG/EKG gb Chart Complete MTDD
--- NOTE | 2016-07-28 21:51 | EDDOCDS ---
Nurse's Notes [facility] Name: Rl Ribera Age: 66 yrs Sex: Male : 1950 Arrival Date: 07/26/2016 Time: 15:04 Bed 14 Private MD: Diagnosis: Weakness-Acute Kidney Injury Presentation: 07/26 15:09 Presenting complaint: EMS states: weakness to right leg. Pt on floor upon EMS arrival. ttb Denies pain. Fell onto floor with no LOC. No neuro deficits. The last date and time the patient was known to be well was was at an unknown time on an unknown date. No acute neurological deficit is noted. Pre-hospital glucose is not applicable to this patient. Adult Sepsis Screening: The patient does not have new or worsening altered mentation. 15:09 Acuity: SAMMI Level 3 ttb 15:10 Adult Sepsis Screening: Patient's respiratory rate is less than 22. Systolic blood ttb pressure is greater than 100. Patient has a qSOFA score of 0- Negative Sepsis Screen. Suicide/Homicide risk assessment- the patient denies having any suicidal and/or homicidal ideations and does not present with any other emotional, behavioral or mental health complaints. Status: Patient is not a billing services manager or dependent. Transition of care: patient was not received from another setting of care. 17:39 Method Of Arrival: Ambulance ttb Triage Assessment: 15:35 The onset of the patients symptoms was at an unknown time. General: Appears in no ttb apparent distress, obese, unkempt, Behavior is appropriate for age, cooperative, pleasant, quiet. Pain: Location: right ankle. Neurological: Level of Consciousness is awake, alert, Oriented to person, place, time, Blow Mold Machine Operator are equal bilaterally Moves all extremities. Speech is normal, Facial symmetry appears normal, Pupils are constricted, Reports weakness. Cardiovascular: Heart tones S1 S2 present Rhythm is sinus rhythm Chest pain is denied. Respiratory: Airway is patent Respiratory effort is even, unlabored, Denies cough, shortness of breath. GI: Denies nausea, vomiting, pain. : Parent/caregiver report the patient having incontinence. Derm: Skin is normal. Injury Description: pt fell from standing. Historical: - Allergies: no known allergies; - Home Meds: 1. metoclopramide HCl 5 mg Oral tab 1 tab once daily (Last dose: 07/26/2016 08:00) 2. multivitamin Oral cap 1 tablet daily (Last dose: 07/26/2016 08:00) 3. hydrochlorothiazide 25 mg Oral tab 1 tab once daily (Last dose: 07/26/2016 08:00) 4. amlodipine 10 mg Oral tab 1 tab once daily (Last dose: 07/26/2016 08:00) 5. aspirin 325 mg Oral tab 1 tab once daily (Last dose: 07/26/2016 08:00) 6. lisinopril 5 mg Oral tab 1 tab once daily (Last dose: 07/26/2016 08:00) 7. levothyroxine 50 mcg Oral cap 1 cap once daily (Last dose: 07/26/2016 07:00) - PMHx: Hypothyroidism; Hypertension; - PSHx: AKA- Left; - Social history: Smoking status: Patient states former smoker of tobacco. Patient/guardian denies using alcohol, the patient reports quitting approximately [address], [address] drugs, No barriers to communication noted, The patient speaks fluent Libyan, Speaks appropriately for age. - Family history: Not pertinent. - : The pt / caregiver states he / she is not on anticoagulants. Home medication list is obtained from the patient. - Exposure Risk Screening:: None identified. - History obtained from: brother. Screenin:37 Screening information is obtained from the patient. Fall risk: At risk due to age, ttb apparent cognitive impairment, gait disturbance, immobility, injury, prior history of falls, The following interventions are performed due to a positive Fall Risk Screen: Fall Risk is added to Special Handling on the patient Summary Screen. A Fall Risk Bracelet was applied to the patient. Side Rails are placed in the up position. A Call Herrera is given with instruction to call for help when getting out of bed. Assistance ADL's: Requires assistance with meal preparation, this assistance is provided by bathing, assistance is provided by dressing, assistance is provided by toileting, assistance is provided by ambulation, assistance is provided by housework, assistance is provided by medication administration, assistance is provided by Public Health nurses. Abuse/DV Screen: The patient / caregiver reports he/she is: not in a situation that causes fear, pain or injury. Nutritional screening: No deficits noted. Advance Directives: Currently, there is no health care proxy. home support is inadequate. Assessment: 15:15 Adult Sepsis Screening: The patient does not have new or worsening altered mentation. ttb Patient's respiratory rate is less than 22. Systolic blood pressure is greater than 100. Patient has a qSOFA score of 0- Negative Sepsis Screen. General: MD in with pt at this time. NAD noted. Pt answering questions appropriately. Resting on stretcher. . 15:37 General: pt taken to imaging at this time.. ttb 16:28 Reassessment: Patient appears in no apparent distress at this time. pt resting on ttb stretcher. IV attempts at this time have been unsuccessful. Brother at bedside. NAD noted.. Neurological: Level of Consciousness is awake, alert. Respiratory: Airway is patent Respiratory effort is even, unlabored. Derm:. Derm: skin tear to left arm -- no bleeding upon arrival. Minimal swelling. 17:00 Reassessment: Patient appears in no apparent distress at this time. pt continues to ttb rest on stretcher. Brother at bedside. NAD noted. SR on monitor. Lab contacted to draw labs. . 17:00 General: Appears in no apparent distress, comfortable. Pain: Denies pain. Neurological: ttb Level of Consciousness is awake, alert. Respiratory: Airway is patent Respiratory effort is even, unlabored. 17:30 General: lab successful with lab draws. No IV access at this time. aware. Pt resting ttb on stretcher. NAD noted. Denies pain, SOB, new weakness.. 17:45 Adult Sepsis Screening: The patient does not have new or worsening altered mentation. ttb Patient's respiratory rate is less than 22. Systolic blood pressure is greater than 100. Patient has a qSOFA score of 0- Negative Sepsis Screen. 17:54 Reassessment: Patient appears in no apparent distress at this time. General: pt refuses ttb to stand to do orthostatic vital signs. States his ankle is too painful when standing on it. aware. Brother at bedside. NAD noted with pt. Watching TV. Appears comfortable.. Cardiovascular: Rhythm is sinus rhythm. 18:18 General: Appears in no apparent distress, comfortable, Behavior is appropriate for age, jmb Patient laying on stretcher, in to see patient, patient attempting urine specimen. NO voiced complaints at this time. . Neurological: Level of Consciousness is awake, alert, obeys commands, Oriented to person, place, time, Speech is normal. Respiratory: Airway is patent Respiratory effort is even, unlabored, Respiratory pattern is regular, symmetrical. 18:30 General: Hospitalist in to speak with pt and his brother. Pt changed, incont of urine.. ttb 19:15 Reassessment: Patient appears in no apparent distress at this time. 20G placed by Dr. quintero He US assisted. Flushed well. Wrapped. Pt tolerated well. Pt resting on stretcher. NAD noted. SR on monitor. Denies pain. Awake and alert.. 20:15 General: pt returned from imaging. NAD noted. Awake and alert. SBAR sent to floor.. ttb 20:27 Adult Sepsis Screening: The patient does not have new or worsening altered mentation. ttb Patient's respiratory rate is less than 22. Systolic blood pressure is greater than 100. Patient has a qSOFA score of 0- Negative Sepsis Screen. 20:48 Reassessment: Patient appears in no apparent distress at this time. Patient denies pain ttb at this time. Patient states feeling better. Patient states symptoms have improved. pt states he is ready for transfer to floor. Brother remains at bedside. RN to receive pt. . General: Appears in no apparent distress, comfortable. Neurological: Level of Consciousness is awake, alert. Cardiovascular: Chest pain is denied. Respiratory: Airway is patent Respiratory effort is even, unlabored. GI: Denies nausea, vomiting, pain. 20:49 General:. ttb Social Work Consult: 19:51 Social Work Note: Met with Pt and Pt's Brother; Karri, at bedside per request Dr. uma Gaspar. Pt was A&O, calm and cooperative. denied SI/HI, denied AH/VH. Pt stated unknown how he hurt his ankle, and denies he needs additional help in the home. Pt's Brother is concerned for Pt's ability to care for himself. Pt has made several calls to EMS for help in the last 2 months. Norm requested to be involved in Pt's D/C plan. 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 uma Vital Signs: 15:16 BP 145 / 65 (auto/); ttb 15:17 Pulse 86 MON; Resp 18 S; Temp 99.0(O); Pulse Ox 95% ; Pain 2/10; ttb 15:30 Pulse 80 MON; Pulse Ox 94% on R/A; ttb 15:32 Pulse 80 MON; Pulse Ox 96% ; ttb 16:45 Pulse 78 MON; ttb 17:44 BP 113 / 55 Supine (auto/); ttb 17:47 Pulse 82 MON; Resp 18; Pulse Ox 96% on R/A; ttb 17:47 BP 156 / 66 Sitting (auto/); ttb 18:00 Pulse 90 MON; Pulse Ox 94% on R/A; ttb 18:30 Pulse 90 MON; ttb 19:00 Pulse 88 MON; Pulse Ox 93% ; ttb 19:30 Pulse 80 MON; Pulse Ox 93% ; ttb 20:03 BP 161 / 89 (auto/); ttb 20:03 Pulse 82 MON; Resp 18; Pulse Ox 93% on R/A; Pain 0/10; ttb 20:33 BP 156 / 72 (auto/); ttb 20:33 Pulse 84 MON; Pulse Ox 93% ; ttb 20:36 Pulse 84 MON; Resp 18; Temp 99.8(O); Pulse Ox 93% on R/A; Pain 0/10; ttb 20:45 BP 140 / 63; Pulse 86 MON; ttb Vitals: 15:35 Log In Time N/A - ambulance arrival. ttb 16:00 Glucose Measurement none. ttb ED Course: 15:05 Patient visited by Zoë Castro, Lay Out Drafter. lbd 15:05 Patient moved to Waiting lbd 15:06 Patient moved to 14 lbd 15:08 Chris Gaspar MD is Attending Physician. br1 15:12 Triage Initiated ttb 15:21 Patient visited by Chris Gaspar MD. br1 15:23 Patient visited by Raven Cabrera RN. ttb 15:33 Patient visited by Avinash Baker. jml1 15:33 EKG done. (by ED staff). Reviewed by Chris Gaspar MD. jml1 15:37 The patient / caregiver is instructed regarding the plan of care and ED course. ttb Accompanied by Family Member, Patient has correct armband on for positive identification. Bed in low position. Call light in reach. Side rails up X 1. Side rails up X2. hall monitor on. Pulse ox on. NIBP on. 15:38 Patient visited by Raven Cabrera RN. ttb 16:28 Patient visited by Raven Cabrera RN. ttb 16:40 Knee, Complete Returned. EDMS 16:40 CT Head Without Contrast Returned. EDMS 16:40 Pelvis Returned. EDMS 16:40 CT Spine,Cervical W/o Contrast Returned. EDMS 17:09 Patient visited by Raven Cabrera, MARLEN. ttb 17:40 Patient visited by Raven Cabrera RN. ttb 17:41 Troponin Sent. ttb 17:41 Liver Profile Sent. ttb 17:41 BMP Sent. ttb 17:41 CBC with Diff Sent. ttb 17:41 Wound care to abrasion, located on left FA was cleaned with soap and water, irrigated ttb with normal saline, dressed with Kerlix, Patient tolerated well. 17:42 Patient visited by Raven Cabrera RN. ttb 17:56 Patient visited by Raven Cabrera RN. ttb 18:19 Patient visited by Caleb Barry RN. jmb 19:03 [facility] Payment Agreement was scanned into [employer] and attached to record. gjb 19:12 Patient visited by Cecil Galindo PCA. kb5 19:20 Patient visited by Raven Cabrera RN. ttb 19:20 Inserted peripheral IV: in right upper arm. Patient tolerated the procedure well. ttb 19:20 Assisted Provider with peripheral IV placement via US. ttb 19:25 Patient name changed from Rl\S\\S\Bacilio\S\ to Rl\S\ \S\Bacilio. EDMS 19:28 Desire Jeter is Hospitalizing Provider. br1 19:39 Ankle, Complete Returned. EDMS 20:06 Patient moved to Ultrasound br3 20:22 Patient visited by Cecil Galindo PCA. kb5 20:25 Patient moved to 14 br3 20:27 Patient visited by Raven Cabrera, MARLEN. ttb 07/27 03:51 T-Sheet-- Draft Copy was scanned into [employer] and attached to record. lja 09:43 ECG/EKG was scanned into [employer] and attached to record. gb 09:43 Radiology Report was scanned into [employer] and attached to record. gb 09:43 PCR was scanned into [employer] and attached to record. gb Order Results: Lab Order: CBC with Diff; SPEC'M 07/26/16 17:36 Test: WHITE BLOOD COUNT; Value: 12.1; Range: 4.0-10.0; Abnormal: Above high normal; Units: K/mm3; Status: F Test: RED BLOOD COUNT; Value: 5.10; Range: 4.30-6.10; Units: M/mm3; Status: F Test: HEMOGLOBIN; Value: 14.4; Range: 14.0-18.0; Units: g/dl; Status: F Test: HEMATOCRIT; Value: 42.7; Range: 42.0-52.0; Units: %; Status: F Test: MEAN CORPUSCULAR VOLUME; Value: 83.9; Range: 80.0-96.0; Units: fl; Status: F Test: MEAN CORPUSCULAR HEMOGLOBIN; Value: 28.2; Range: 27.0-33.0; Units: pg; Status: F Test: MEAN CORPUSCULAR HGB CONC; Value: 33.6; Range: 32.0-36.5; Units: g/dl; Status: F Test: RED CELL DISTRIBUTION WIDTH; Value: 14.6; Range: 11.5-14.5; Abnormal: Above high normal; Units: %; Status: F Test: PLATELET COUNT, AUTOMATED; Value: 244; Range: 150-450; Units: k/mm3; Status: F Test: NEUTROPHILS %; Value: 77.6; Range: 36.0-66.0; Abnormal: Above high normal; Units: %; Status: F Test: LYMPH %; Value: 15.2; Range: 24.0-44.0; Abnormal: Below low normal; Units: %; Status: F Test: MONO %; Value: 5.5; Range: 0.0-5.0; Abnormal: Above high normal; Units: %; Status: F Test: EOS %; Value: 0.4; Range: 0.0-3.0; Units: %; Status: F Test: BASO %; Value: 0.2; Range: 0.0-1.0; Units: %; Status: F Test: LARGE UNSTAINED CELL %; Value: 1.1; Range: 0.0-4.0; Units: %; Status: F Test: NEUTROPHILS #; Value: 9.4; Range: 1.8-7.7; Abnormal: Above high normal; Units: K/mm3; Status: F Test: LYMPH #; Value: 1.8; Range: 1.5-4.5; Units: K/mm3; Status: F Test: MONO #; Value: 0.7; Range: 0.0-0.8; Units: K/mm3; Status: F Test: EOS #; Value: 0.0; Range: 0.0-0.50; Units: K/mm3; Status: F Test: BASO #; Value: 0.0; Range: 0.0-0.2; Units: K/mm3; Status: F Test: LARGE UNSTAINED CELL #; Value: 0.1; Range: 0.0-0.4; Units: K/mm3; Status: F Lab Order: [facility] 07/26/16 18:08 Test: GLUCOSE, FASTING; Value: 114; Range: 80-110; Abnormal: Above high normal; Units: MG/DL; Status: F Test: BLOOD UREA NITROGEN; Value: 32; Range: 7-18; Abnormal: Above high normal; Units: MG/DL; Status: F Test: CREATININE FOR GFR; Value: 1.79; Range: 0.70-1.30; Abnormal: Above high normal; Units: MG/DL; Status: F Test: GLOMERULAR FILTRATION RATE; Value: 40.6; Range: >49; Abnormal: Below low normal; Status: F Test: SODIUM LEVEL; Value: 139; Range: 136-145; Units: MEQ/L; Status: F Test: POTASSIUM SERUM; Value: 4.8; Range: 3.5-5.1; Units: MEQ/L; Status: F Test: CHLORIDE LEVEL; Value: 105; Range: 98-107; Units: MEQ/L; Status: F Test: CARBON DIOXIDE LEVEL; Value: 22; Range: 21-32; Units: MEQ/L; Status: F Test: ANION GAP; Value: 12; Range: 8-16; Units: MEQ/L; Status: F Test: CALCIUM LEVEL; Value: 9.8; Range: 8.8-10.2; Units: MG/DL; Status: F Test Note: ; Units are mL/min/1.73 m2 Chronic Kidney Disease Staging per NKF: Stage I & II GFR >=60 Normal to Mildly Decreased Stage III GFR 30-59 Moderately Decreased Stage IV GFR 15-29 Severely Decreased Stage V GFR <15 Very Little GFR Left ESRD GFR <15 on ELECTRIC RELAY TESTER Lab Order: Liver Profile; SPEC'M 07/26/16 18:08 Test: AST/SGOT; Value: 37; Range: 15-37; Units: U/L; Status: F Test: ALT/SGPT; Value: 31; Range: 12-78; Units: U/L; Status: F Test: ALKALINE PHOSPHATASE; Value: 85; Range: 45-117; Units: U/L; Status: F Test: BILIRUBIN,TOTAL; Value: 0.4; Range: 0.2-1.0; Units: MG/DL; Status: F Test: BILIRUBIN,DIRECT; Value: < 0.1; Range: 0.0-0.2; Units: MG/DL; Status: F Test: TOTAL PROTEIN; Value: 9.2; Range: 6.4-8.2; Abnormal: Above high normal; Units: GM/DL; Status: F Test: ALBUMIN; Value: 4.6; Range: 3.2-5.2; Units: GM/DL; Status: F Test: ALBUMIN/GLOBULIN RATIO; Value: 1.00; Range: 1.00-1.93; Status: F Lab Order: Troponin; SPEC'M 07/26/16 18:08 Test: TROPONIN I; Value: < 0.02; Range: < 0.10; Units: NG/ML; Status: F Test Note: ; Troponin I Reference Interval for [employer] LOCI: 99th Percentile= 0.00-0.045 ng/ml Risk Stratification: <= 0.10 ng/ml Decreased Risk for Adverse Clinical Events. 0.10-1.50 ng/ml Increased Risk for Adverse Clinical Events. Evaluation of additional criterion and/or repeat testing in 2-6 hours is suggested to rule out myocardial damage. >= 1.50 ng/ml Indicative of Myocardial Injury. Radiology Order: Pelvis Test: Pelvis REASON FOR EXAMINATION: Trauma; AP VIEW OF THE PELVIS: SINGLE VIEW.; ; HISTORY: Trauma.; ; FINDINGS: AP view of the pelvis demonstrates a right external iliac artery; metallic stent in place. Vascular calcification is noted. The bony pelvic ring; is intact. No pelvic fracture or hip fracture is appreciated.; ; IMPRESSION:; ; No traumatic abnormality is noted. Right external iliac artery stent in place.; ; ; Signed by; Fritz Medina MD 07/26/2016 04:56 P; Radiology Order: Knee, Complete Test: Knee, Complete REASON FOR EXAMINATION: Trauma; Right knee series: Five views.; ; History: Trauma.; ; Findings: Five views of the right knee demonstrate diffuse osteopenia. There is; an osteochondroma projecting posteriorly and medially from the proximal tibial; metaphysis. This measures 1.8 cm in greatest dimension. There is vascular; calcification. No evidence of erosive change or joint effusion.; ; Impression:; ; Posteromedial proximal tibial metaphyseal osteochondroma. No fracture seen.; ; ; Signed by; Fritz Medina MD 07/26/2016 04:56 P; Radiology Order: Ankle, Complete Test: Ankle, Complete REASON FOR EXAMINATION: Trauma; RIGHT ANKLE SERIES:; ; Four views of the right ankle are performed. I see no acute fracture or; dislocation. The ankle mortise is anatomic.; ; IMPRESSION:; ; No acute fracture or dislocation.; ; ; Signed by; Nestor Dominguez MD 07/26/2016 07:36 P; Radiology Order: CT Head Without Contrast Test: CT Head Without Contrast REASON FOR EXAMINATION: Trauma; CT HEAD WITHOUT CONTRAST:; ; HISTORY: Trauma.; ; Areas of decreased attentuation are present in the periventricular and; subcortical white matter. This represents small vessel ischemic disease. There is; no intraparenchymal hemorrhage, mass, or midline shift. The ventricular system; and cortical sulci as well as subarachnoid space and the posterior fossa are; dilated consistent with moderate volume loss. There is no extracerebral; collection. There is no fracture. The visualized sinuses are clear.; ; IMPRESSION:; ; 1. Small vessel ischemic disease.; ; 2. Moderate volume loss.; ; ; Signed by; Josr Hernandez MD 07/26/2016 04:23 P; Radiology Order: CT Spine,Cervical W/o Contrast Test: CT Spine,Cervical W/o Contrast REASON FOR EXAMINATION: Trauma; CT CERVICAL SPINE WITHOUT CONTRAST:; ; HISTORY: Trauma.; ; There is no acute fracture or subluxation. Disc bulges are present at the C3-4; through C5-6 levels. There is minimal narrowing of the spinal canal. Uncinate; process hypertrophy is present at the C5-6 and C6-7 levels. This produces; minimal narrowing of the neural foramina. The C5-6 and C6-7 intervertebral discs; are decreased in height consistent with disc degeneration.; ; IMPRESSION:; ; 1. There is no acute fracture or subluxation.; ; 2. There is cervical spondylosis at the C3-4 through C6-7 levels.; ; ; Signed by; Josr Hernandez MD 07/26/2016 04:29 P; Outcome: 07/26 15:37 CT Study completed. ttb 17:40 Discharge Assessment: patient administered narcotics -. ttb 19:28 Decision to Hospitalize by Provider. br1 20:25 The following High Risk Discharge criteria are identified: Yes, admit. Admitted to ttb Med/Surg accompanied by tech, family with patient, via stretcher, with chart. Condition: stable. Admission hand-off: Report called to Lorraine Arteaga RN Report Faxed Fax receipt verified by [id number]. Property :Personal belongings accompany Pt. 20:49 Patient left the ED. ttb Signatures: Dispatcher [employer] EDMS Zoë Castro, Lay Out Drafter Unit lbd Musa, Yvette, PSA PSA rb Deidra Duval, Reg Reg gb Mtaeo, Cecil, DANDY TENDER DANDY TENDER kb5 Chris Gaspar MD MD br1 Ilene Martino br3 Avinash Baker Teresa, RN RN ttb Becker, Joshua, RN RN jmb Arel, Lisa lja Beck, Gabriela gjb Chart Complete MTDD
--- NOTE | 2016-07-28 21:51 | EDDOCDS ---
Physician Documentation [facility] Name: Rl Ribera Age: 66 yrs Sex: Male : 1950 Arrival Date: 07/26/2016 Time: 15:04 Bed 14 Private MD: Disposition: 07/26/16 19:28 Hospitalization ordered by Desire Jeter for Inpatient Admission. Preliminary diagnosis is Weakness - Acute Kidney Injury. - Bed requested for 4 [place]. - Status is Inpatient Admission. ttb - Condition is Stable. - Problem is new. - Symptoms are unchanged. Historical: - Allergies: no known allergies; - Home Meds: 1. metoclopramide HCl 5 mg Oral tab 1 tab once daily (Last dose: 07/26/2016 08:00) 2. multivitamin Oral cap 1 tablet daily (Last dose: 07/26/2016 08:00) 3. hydrochlorothiazide 25 mg Oral tab 1 tab once daily (Last dose: 07/26/2016 08:00) 4. amlodipine 10 mg Oral tab 1 tab once daily (Last dose: 07/26/2016 08:00) 5. aspirin 325 mg Oral tab 1 tab once daily (Last dose: 07/26/2016 08:00) 6. lisinopril 5 mg Oral tab 1 tab once daily (Last dose: 07/26/2016 08:00) 7. levothyroxine 50 mcg Oral cap 1 cap once daily (Last dose: 07/26/2016 07:00) - PMHx: Hypothyroidism; Hypertension; - PSHx: AKA- Left; - Social history: Smoking status: Patient states former smoker of tobacco. Patient/guardian denies using alcohol, the patient reports quitting approximately [address], [address] drugs, No barriers to communication noted, The patient speaks fluent Beninese, Speaks appropriately for age. - Family history: Not pertinent. - : The pt / caregiver states he / she is not on anticoagulants. Home medication list is obtained from the patient. - Exposure Risk Screening:: None identified. - History obtained from: brother. Vital Signs: 07/26 15:16 BP 145 / 65 (auto/); ttb 15:17 Pulse 86 MON; Resp 18 S; Temp 99.0(O); Pulse Ox 95% ; Pain 2/10; ttb 15:30 Pulse 80 MON; Pulse Ox 94% on R/A; ttb 15:32 Pulse 80 MON; Pulse Ox 96% ; ttb 16:45 Pulse 78 MON; ttb 17:44 BP 113 / 55 Supine (auto/); ttb 17:47 Pulse 82 MON; Resp 18; Pulse Ox 96% on R/A; ttb 17:47 BP 156 / 66 Sitting (auto/); ttb 18:00 Pulse 90 MON; Pulse Ox 94% on R/A; ttb 18:30 Pulse 90 MON; ttb 19:00 Pulse 88 MON; Pulse Ox 93% ; ttb 19:30 Pulse 80 MON; Pulse Ox 93% ; ttb 20:03 BP 161 / 89 (auto/); ttb 20:03 Pulse 82 MON; Resp 18; Pulse Ox 93% on R/A; Pain 0/10; ttb 20:33 BP 156 / 72 (auto/); ttb 20:33 Pulse 84 MON; Pulse Ox 93% ; ttb 20:36 Pulse 84 MON; Resp 18; Temp 99.8(O); Pulse Ox 93% on R/A; Pain 0/10; ttb 20:45 BP 140 / 63; Pulse 86 MON; ttb MDM: 15:20 IV Saline Lock ordered. br1 15:20 Orthostatic VS ordered. br1 15:20 Top Taper Machine/Pulse Ox/q 30 min VS ordered. br1 15:21 CBC with Diff Ordered. EDMS 15:21 BMP Ordered. EDMS 15:21 Liver Profile Ordered. EDMS 15:21 Troponin Ordered. EDMS 15:21 ECG WITH READING ER PHYS+CARDIAG ordered. EDMS 15:21 Pelvis Ordered. EDMS 15:22 Knee, Complete Ordered. EDMS 15:22 Ankle, Complete Ordered. EDMS 15:33 CT Head Without Contrast Ordered. EDMS 15:33 CT Spine,Cervical W/o Contrast Ordered. EDMS 15:33 Misc. Nursing Order ordered. br1 17:58 CBC with Diff Reviewed. br1 17:58 Pelvis Reviewed. br1 17:58 Knee, Complete Reviewed. br1 17:58 CT Head Without Contrast Reviewed. br1 17:58 CT Spine,Cervical W/o Contrast Reviewed. br1 18:08 Urinalysis Ordered. EDMS 18:08 Urine Culture Ordered. EDMS 18:09 Consult PFS/PSA/Cigar Packer And Grader ordered. br1 18:10 BED REQUEST+ADM ordered. EDMS 18:44 BMP Reviewed. br1 18:44 Liver Profile Reviewed. br1 18:44 Troponin Reviewed. br1 19:03 [facility] [facility] Payment Agreement was scanned into [employer] and attached to record. gjb 19:03 Financial registration complete. gjb 19:45 BLOOD CULTURES Ordered. EDMS 19:45 MRI FOOT WITHOUT CONTRAST Ordered. EDMS 19:46 PHYSICAL THERAPY EVAL & TREAT ordered. EDMS 19:46 PICC LINE INSERTION W/SITERITE Ordered. EDMS 19:46 RENAL US Ordered. EDMS 19:47 THYROID PROFILE Ordered. EDMS 19:47 C REACTIVE PROTEIN QUANTITATIV Ordered. EDMS 19:47 COMPLETE BLOOD COUNT Ordered. EDMS 19:47 BASIC METABOLIC PROFILE Ordered. EDMS 19:47 MAGNESIUM LEVEL Ordered. EDMS 19:49 Admission / Observation Status ordered. EDMS 19:49 LOW FAT LOW CHOLESTEROL DIET ordered. EDMS 20:12 Chest, 2 view PA, Lat Ordered. EDMS 07/27 03:51 T-Sheet-- Draft Copy was scanned into [employer] and attached to record. lja 09:43 ECG/EKG was scanned into [employer] and attached to record. gb 09:43 Radiology Report was scanned into [employer] and attached to record. gb 09:43 PCR was scanned into [employer] and attached to record. gb Signatures: Dispatcher [employer] EDNM Deidra Duval, Reg Reg Chris Christopher MD MD br1 Deborah French, HANDYPERSON HANDYPERSON ar3 Raven Cabrera, RN RN ttb Arel, Claribel Ennis The chart was reviewed and I authenticate all verbal orders and agree with the evaluation and treatment provided.Attachments: 07/26 19:03 [facility] Payment Agreement gjb 07/27 03:51 T-Sheet-- Draft Copy lja 09:43 ECG/EKG gb Chart Complete MTDD
[2016-07-28 22:00] VITALS: BP 166/70
[2016-07-29 05:56] LABS: MEAN CORPUSCULAR HGB CONC 32.9 g/dl (32.0-36.5); MEAN CORPUSCULAR VOLUME 85.2 fl (80.0-96.0); RED CELL DISTRIBUTION WIDTH 14.8 % (11.5-14.5); WHITE BLOOD COUNT 9.1 K/mm3 (4.0-10.0)
[2016-07-29 06:00] VITALS: BP 137/60
[2016-07-29 06:18] LABS: ANION GAP 10 MEQ/L (8-16); BLOOD UREA NITROGEN 17 MG/DL (7-18); CALCIUM LEVEL 8.8 MG/DL (8.8-10.2); CARBON DIOXIDE LEVEL 22 MEQ/L (21-32); CHLORIDE LEVEL 111 MEQ/L (98-107); CREATININE FOR GFR 1.09 MG/DL (0.70-1.30); GLOMERULAR FILTRATION RATE > 60.0 (>49); GLUCOSE, FASTING 88 MG/DL (80-110); MAGNESIUM LEVEL 1.8 MG/DL (1.8-2.4); POTASSIUM SERUM 3.8 MEQ/L (3.5-5.1); SODIUM LEVEL 143 MEQ/L (136-145)
[2016-07-29] MEDS: NS 1,000 ML IV SCH (07:30)
[2016-07-29] MEDS: HEPARIN SOD (PORCINE) 5000 UNITS/ML VIAL SC SCH ×2 (10:28→20:41)
[2016-07-29] MEDS: amLODIPine 10 MG TAB PO SCH (10:28)
[2016-07-29] MEDS: ASPIRIN ENTERIC 325 MG TAB PO SCH (10:28)
[2016-07-29] MEDS: LEVOTHYROXINE 0.05 MG TAB (50 MCG) PO SCH (10:28)
[2016-07-29] MEDS: SENOKOT S TAB PO SCH ×2 (10:28→20:40)
[2016-07-29] MEDS: MULTIVITAMINS/MINERALS THERAP 1 TAB PO SCH (10:28)
[2016-07-29] MEDS: PANTOPRAZOLE 40MG TAB (PROTONIX) PO SCH (10:28)
[2016-07-29] MEDS: NYSTATIN 100,000 UNITS/GM TOPICAL PWD 15 GM TOP SCH ×2 (10:29→20:41)
[2016-07-29 14:00] VITALS: BP 133/73
--- NOTE | 2016-07-29 14:09 | IPN ---
DATE: 07/29/2016 Mr. Ribera is feeling well. He does still have ankle pain when weightbearing, not at rest. No chest pain or shortness of breath. Following a diet. We did discuss his wishes regarding a DO NOT RESUSCITATE and we completed a Medical Order for Life-Sustaining Treatment (MOLST) form in that regard. Temperature is 97.8, pulse 59, respiratory rate 19, blood pressure 137/60, 92% on room air. Intake and output notable for a positive fluid balance of 2800. One bowel movement yesterday. Weight is 102.4 kg. He is awake, appropriately interactive. Pleasantly conversant. Breathing is symmetrical and rested. Heart is regular rate and rhythm. Abdomen is soft, doughy nontender. There is no significant tenderness to the right ankle with palpitation. There is no redness. There is no swelling. White cell count is 9.1, hemoglobin 11.2, platelets 219, BUN 17, creatinine 1.09. My assessment is as follows: This is a 66-year-old gentleman who suffered a fall in the setting of right ankle pain and acute on chronic renal failure. Plan is as follows: 1. Acute on chronic renal failure. This appears to be at baseline. We have been holding his PHILIPPE inhibitor and diuretic. Today we will discontinue his IV fluids and I will monitor his blood pressure clinically. He may require return to antihypertensives tomorrow. 2. The patient has had fall related to ankle pain. There is no evidence of osteomyelitis or occult fracture, likely has an ankle sprain in the setting of only one complete lower extremity. Will likely need subacute rehab. 3. The patient has hypothyroidism. 4. The patient has peripheral vascular disease. 5. The patient has appropriate deep vein thrombosis (DVT) prophylaxis. 6. The patient is a DO NOT RESUSCITATE.
[2016-07-29 21:25] VITALS: BP 129/60
[2016-07-30 05:35] VITALS: BP 140/70
[2016-07-30 06:05] LABS: MEAN CORPUSCULAR HEMOGLOBIN 27.6 pg (27.0-33.0); MEAN CORPUSCULAR HGB CONC 32.6 g/dl (32.0-36.5); MEAN CORPUSCULAR VOLUME 84.5 fl (80.0-96.0); RED CELL DISTRIBUTION WIDTH 14.7 % (11.5-14.5); WHITE BLOOD COUNT 8.8 K/mm3 (4.0-10.0)
[2016-07-30 06:19] LABS: ANION GAP 10 MEQ/L (8-16); BLOOD UREA NITROGEN 15 MG/DL (7-18); CARBON DIOXIDE LEVEL 23 MEQ/L (21-32); CHLORIDE LEVEL 109 MEQ/L (98-107); CREATININE FOR GFR 1.23 MG/DL (0.70-1.30); GLOMERULAR FILTRATION RATE > 60.0 (>49); GLUCOSE, FASTING 92 MG/DL (80-110); MAGNESIUM LEVEL 1.8 MG/DL (1.8-2.4); POTASSIUM SERUM 3.9 MEQ/L (3.5-5.1); SODIUM LEVEL 142 MEQ/L (136-145)
[2016-07-30] MEDS: SENOKOT S TAB PO SCH ×2 (09:41→20:27)
[2016-07-30] MEDS: HEPARIN SOD (PORCINE) 5000 UNITS/ML VIAL SC SCH ×2 (09:41→20:27)
[2016-07-30] MEDS: ASPIRIN ENTERIC 325 MG TAB PO SCH (09:41)
[2016-07-30] MEDS: MULTIVITAMINS/MINERALS THERAP 1 TAB PO SCH (09:41)
[2016-07-30] MEDS: NYSTATIN 100,000 UNITS/GM TOPICAL PWD 15 GM TOP SCH ×2 (09:42→20:27)
[2016-07-30] MEDS: amLODIPine 10 MG TAB PO SCH (09:44)
[2016-07-30] MEDS: PANTOPRAZOLE 40MG TAB (PROTONIX) PO SCH (09:44)
[2016-07-30] MEDS: LEVOTHYROXINE 0.05 MG TAB (50 MCG) PO SCH (09:50)
--- NOTE | 2016-07-30 10:08 | IPNPDOC ---
Date of Service/Time 07/30/16 Progress Note SUBJECTIVE: [The patient feels well he tells me that his ankles improving he has no complaints] OBJECTIVE: PHYSICAL EXAMINATION: VITAL SIGNS: Please see below. GENERAL: Disheveled elderly man obese sitting on the edge of his bed eating breakfast HEENT: Shoveled fortification moist mucous membranes CARDIOVASCULAR: S1-S2 regular. RESPIRATORY: Clear to auscultation. ABDOMINAL: Obese bowel sounds present abdomen soft EXTREMITIES: Status post BKA on the left cyanosis or edema on the right good range of motion on the right NEUROLOGICAL: Focal deficits LABORATORY DATA: Please see below. 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 Problem #1 acute renal failure: The patient was present hydration and his diuretic was held his renal function appears to return to its baseline. We have not restarted his diuretic or his PHILIPPE inhibitor as of yet we will continue him on his fluid status and blood pressure daily and restart as appropriate. Problem #2 right ankle sprain: MRI reviewed the patient continues to work with physical therapy his pain is improving as well. At this time physical therapy feels that he is not safe that he may require rehabilitation versus continued improvement with physical therapy will continue to monitor Problem #3 hypothyroidism continue with hormone replacement therapy Problem #4 peripheral vascular disease patient is status post stenting. Problem #5 hypertension the patient's PHILIPPE inhibitor diuretic [place] he is on [facility] DISPOSITION: [We'll continue to work with physical therapy he may require rehabilitation placement]. VS, I&O, 24H, Fishbone VS, I&O, 24H, Fishbone Vital Signs Date Time Temp Pulse Resp B/P Pulse Ox O2 Delivery O2 Flow Rate FiO2 07/30/16 09:44 63 140/65 07/30/16 05:35 97.9 16 92 Room Air I&O- Last 24 Hours up to 6 AM 07/30/16 06:00 Intake Total 600 ml Output Total 900 ml Balance -300 ml Laboratory Tests 2 07/30/16 05:46: Anion Gap 10, Blood Urea Nitrogen 15, Creatinine 1.23, Sodium Level 142, Potassium Level 3.9, Chloride Level 109H, Carbon Dioxide Level 23, Calcium Level 9.0, Glomerular Filtration Rate > 60.0, Magnesium Level 1.8 Laboratory Tests 07/30/16 05:46 Calcium Level 9.0, Red Blood Count 4.35, Mean Corpuscular Volume 84.5, Mean Corpuscular Hemoglobin 27.6, Mean Corpuscular Hemoglobin Concent 32.6, Red Cell Distribution Width 14.7 H Microbiology 07/27/16 Blood Culture - Preliminary, Resulted No Growth after 72 hours. All specime... 07/28/16 Urine Culture - Final, Complete JAXON REYNOLDS MD Jul 30, 2016 10:08
[2016-07-30 14:00] VITALS: BP 138/67
[2016-07-30 22:00] VITALS: BP 130/60
[2016-07-31 06:00] VITALS: BP 132/64
[2016-07-31] MEDS: LEVOTHYROXINE 0.05 MG TAB (50 MCG) PO SCH (06:15)
[2016-07-31 06:41] LABS: MEAN CORPUSCULAR HEMOGLOBIN 27.8 pg (27.0-33.0); MEAN CORPUSCULAR HGB CONC 33.2 g/dl (32.0-36.5); MEAN CORPUSCULAR VOLUME 83.9 fl (80.0-96.0); RED CELL DISTRIBUTION WIDTH 15.5 % (11.5-14.5); WHITE BLOOD COUNT 9.8 K/mm3 (4.0-10.0)
[2016-07-31 07:05] LABS: ANION GAP 9 MEQ/L (8-16); BLOOD UREA NITROGEN 18 MG/DL (7-18); CALCIUM LEVEL 8.8 MG/DL (8.8-10.2); CARBON DIOXIDE LEVEL 23 MEQ/L (21-32); CHLORIDE LEVEL 109 MEQ/L (98-107); CREATININE FOR GFR 1.26 MG/DL (0.70-1.30); GLOMERULAR FILTRATION RATE > 60.0 (>49); GLUCOSE, FASTING 90 MG/DL (80-110); MAGNESIUM LEVEL 1.8 MG/DL (1.8-2.4); SODIUM LEVEL 141 MEQ/L (136-145)
[2016-07-31] MEDS: SENOKOT S TAB PO SCH ×2 (09:15→20:36)
[2016-07-31] MEDS: amLODIPine 10 MG TAB PO SCH (09:15)
[2016-07-31] MEDS: ASPIRIN ENTERIC 325 MG TAB PO SCH (09:15)
[2016-07-31] MEDS: MULTIVITAMINS/MINERALS THERAP 1 TAB PO SCH (09:15)
[2016-07-31] MEDS: PANTOPRAZOLE 40MG TAB (PROTONIX) PO SCH (09:15)
[2016-07-31] MEDS: HEPARIN SOD (PORCINE) 5000 UNITS/ML VIAL SC SCH ×2 (09:15→20:37)
[2016-07-31] MEDS: NYSTATIN 100,000 UNITS/GM TOPICAL PWD 15 GM TOP SCH ×2 (09:16→20:36)
--- NOTE | 2016-07-31 12:55 | IPNPDOC ---
Date of Service/Time 07/31/16 Progress Note SUBJECTIVE: [The patient feels well he has no complaints] OBJECTIVE: PHYSICAL EXAMINATION: VITAL SIGNS: Please see below. GENERAL: Disheveled elderly man obese sitting on the edge of his bed HEENT: Disheveled moist mucous membranes CARDIOVASCULAR: S1-S2 regular. RESPIRATORY: Clear to auscultation. ABDOMINAL: Obese bowel sounds present abdomen soft EXTREMITIES: Status post BKA on the left he is wearing his prosthesis no cyanosis or edema on the right good range of motion on the right NEUROLOGICAL: No Focal deficits LABORATORY DATA: Please see below. 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 Problem #1 acute renal failure: The patient was dehydrated on presentation he was rehydrated and his diuretic was held his renal function appears to have returned to its baseline. We have not restarted his diuretic or his PHILIPPE inhibitor as of yet we will continue to monitor his fluid status and blood pressure daily and restart as appropriate. Problem #2 right ankle sprain: MRI reviewed the patient continues to work with physical therapy his pain is improving as well. At this time physical therapy feels that he is not safe he will likely need at least subacute rehabilitation Problem #3 hypothyroidism continue with hormone replacement therapy Problem #4 peripheral vascular disease patient is status post stenting. Stable Problem #5 hypertension the patient's PHILIPPE inhibitor diuretic are on hold he is on Norvasc DISPOSITION: [Currently seeking subacute rehabilitation placement versus senior care facility]. VS, I&O, 24H, Fishbone VS, I&O, 24H, Fishbone Vital Signs Date Time Temp Pulse Resp B/P Pulse Ox O2 Delivery O2 Flow Rate FiO2 07/31/16 09:15 65 137/64 07/31/16 09:15 Room Air 07/31/16 06:00 98.1 20 96 I&O- Last 24 Hours up to 6 AM 07/31/16 05:59 Intake Total 960 ml Output Total 975 ml Balance -15 ml Laboratory Tests 2 07/31/16 06:26: Anion Gap 9, Blood Urea Nitrogen 18, Creatinine 1.26, Sodium Level 141, Potassium Level 4.0, Chloride Level 109H, Carbon Dioxide Level 23, Calcium Level 8.8, Glomerular Filtration Rate > 60.0, Magnesium Level 1.8 Laboratory Tests 07/31/16 06:26 Calcium Level 8.8, Red Blood Count 4.33, Mean Corpuscular Volume 83.9, Mean Corpuscular Hemoglobin 27.8, Mean Corpuscular Hemoglobin Concent 33.2, Red Cell Distribution Width 15.5 H Microbiology 07/27/16 Blood Culture - Preliminary, Resulted No Growth after 72 hours. All specime... 07/28/16 Urine Culture - Final, Complete JAXON REYNOLDS MD Jul 31, 2016 12:55
[2016-07-31 14:00] VITALS: BP 157/83
[2016-07-31 22:00] VITALS: BP 125/59
[2016-08-01] MEDS: LEVOTHYROXINE 0.05 MG TAB (50 MCG) PO SCH (05:13)
[2016-08-01 05:56] LABS: MEAN CORPUSCULAR HEMOGLOBIN 27.2 pg (27.0-33.0); MEAN CORPUSCULAR HGB CONC 32.5 g/dl (32.0-36.5); MEAN CORPUSCULAR VOLUME 83.8 fl (80.0-96.0); RED CELL DISTRIBUTION WIDTH 15.5 % (11.5-14.5); WHITE BLOOD COUNT 11.3 K/mm3 (4.0-10.0)
[2016-08-01 06:00] VITALS: BP 136/64
[2016-08-01 06:23] LABS: ANION GAP 10 MEQ/L (8-16); BLOOD UREA NITROGEN 21 MG/DL (7-18); CARBON DIOXIDE LEVEL 24 MEQ/L (21-32); CHLORIDE LEVEL 106 MEQ/L (98-107); CREATININE FOR GFR 1.24 MG/DL (0.70-1.30); GLOMERULAR FILTRATION RATE > 60.0 (>49); GLUCOSE, FASTING 90 MG/DL (80-110); POTASSIUM SERUM 4.1 MEQ/L (3.5-5.1); SODIUM LEVEL 140 MEQ/L (136-145)
[2016-08-01] MEDS: SENOKOT S TAB PO SCH ×2 (08:40→21:37)
[2016-08-01] MEDS: MULTIVITAMINS/MINERALS THERAP 1 TAB PO SCH (08:40)
[2016-08-01] MEDS: ASPIRIN ENTERIC 325 MG TAB PO SCH (08:40)
[2016-08-01] MEDS: NYSTATIN 100,000 UNITS/GM TOPICAL PWD 15 GM TOP SCH ×2 (08:40→21:37)
[2016-08-01] MEDS: amLODIPine 10 MG TAB PO SCH (08:40)
[2016-08-01] MEDS: PANTOPRAZOLE 40MG TAB (PROTONIX) PO SCH (08:40)
[2016-08-01] MEDS: HEPARIN SOD (PORCINE) 5000 UNITS/ML VIAL SC SCH ×2 (08:41→21:37)
[2016-08-01 14:00] VITALS: BP 137/75
--- NOTE | 2016-08-01 14:42 | IPNPDOC ---
Date of Service/Time 08/01/16 Progress Note SUBJECTIVE: [The patient feels well] OBJECTIVE: PHYSICAL EXAMINATION: VITAL SIGNS: Please see below. GENERAL: Disheveled elderly man obese sitting on the edge of his bed HEENT: Disheveled moist mucous membranes CARDIOVASCULAR: S1-S2 regular. RESPIRATORY: Clear to auscultation. ABDOMINAL: Obese bowel sounds present abdomen soft EXTREMITIES: Status post BKA on the left he is wearing his prosthesis no cyanosis or edema on the right good range of motion on the right ankle NEUROLOGICAL: No Focal deficits LABORATORY DATA: Please see below. 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 Problem #1 acute renal failure: The patient was dehydrated on presentation he was rehydrated and his diuretic was held, his renal function appears to have returned to its baseline. We have not restarted his diuretic or his PHILIPPE inhibitor as of yet we will continue to monitor his fluid status and blood pressure daily and restart as appropriate. Problem #2 right ankle sprain: MRI reviewed the patient continues to work with physical therapy his pain is improving as well. At this time physical therapy feels that he is not safe he will likely need at least subacute rehabilitation Problem #3 hypothyroidism continue with hormone replacement therapy Problem #4 peripheral vascular disease patient is status post stenting. Stable Problem #5 hypertension the patient's PHILIPPE inhibitor diuretic are on hold he is on [place] DISPOSITION: [Currently seeking subacute rehabilitation placement versus correction facility, at this time patient and family trying to decide on best disposition out of options provided]. VS, I&O, 24H, Fishbone VS, I&O, 24H, Fishbone Vital Signs Date Time Temp Pulse Resp B/P Pulse Ox O2 Delivery O2 Flow Rate FiO2 08/01/16 09:00 Room Air 08/01/16 08:40 62 136/64 08/01/16 06:00 99.0 20 95 I&O- Last 24 Hours up to 6 AM 08/01/16 06:00 Intake Total 1320 ml Output Total 900 ml Balance 420 ml Laboratory Tests 2 08/01/16 05:42: Anion Gap 10, Blood Urea Nitrogen 21H, Creatinine 1.24, Sodium Level 140, Potassium Level 4.1, Chloride Level 106, Carbon Dioxide Level 24, Calcium Level 9.0, Glomerular Filtration Rate > 60.0, Magnesium Level 2.0 Laboratory Tests 08/01/16 05:42 Calcium Level 9.0, Red Blood Count 4.44, Mean Corpuscular Volume 83.8, Mean Corpuscular Hemoglobin 27.2, Mean Corpuscular Hemoglobin Concent 32.5, Red Cell Distribution Width 15.5 H Microbiology 07/27/16 Blood Culture - Final, Complete NO GROWTH AFTER 5 DAYS 07/28/16 Urine Culture - Final, Complete JAXON REYNOLDS MD Aug 01, 2016 14:42
[2016-08-01 22:00] VITALS: BP 132/72
[2016-08-02] MEDS: LEVOTHYROXINE 0.05 MG TAB (50 MCG) PO SCH (05:11)
[2016-08-02 06:00] VITALS: BP 140/73
[2016-08-02 06:47] LABS: MEAN CORPUSCULAR HEMOGLOBIN 27.7 pg (27.0-33.0); MEAN CORPUSCULAR HGB CONC 33.5 g/dl (32.0-36.5); MEAN CORPUSCULAR VOLUME 82.6 fl (80.0-96.0); RED CELL DISTRIBUTION WIDTH 15.5 % (11.5-14.5); WHITE BLOOD COUNT 10.3 K/mm3 (4.0-10.0)
[2016-08-02 07:03] LABS: CALCIUM LEVEL 9.2 MG/DL (8.8-10.2); CREATININE FOR GFR 1.38 MG/DL (0.70-1.30); GLOMERULAR FILTRATION RATE 54.9 (>49); POTASSIUM SERUM 4.1 MEQ/L (3.5-5.1)
[2016-08-02] MEDS: NYSTATIN 100,000 UNITS/GM TOPICAL PWD 15 GM TOP SCH ×2 (09:11→20:27)
[2016-08-02] MEDS: PANTOPRAZOLE 40MG TAB (PROTONIX) PO SCH (09:11)
[2016-08-02] MEDS: SENOKOT S TAB PO SCH ×2 (09:11→20:27)
[2016-08-02] MEDS: MULTIVITAMINS/MINERALS THERAP 1 TAB PO SCH (09:11)
[2016-08-02] MEDS: ASPIRIN ENTERIC 325 MG TAB PO SCH (09:11)
[2016-08-02] MEDS: HEPARIN SOD (PORCINE) 5000 UNITS/ML VIAL SC SCH ×2 (09:12→20:27)
[2016-08-02] MEDS: amLODIPine 10 MG TAB PO SCH (09:12)
--- NOTE | 2016-08-02 13:45 | IPNPDOC ---
Date of Service/Time 08/02/16 Progress Note SUBJECTIVE: The patient feels well has no complaints OBJECTIVE: PHYSICAL EXAMINATION: VITAL SIGNS: Please see below. GENERAL: Disheveled elderly man obese sitting on the edge of his bed HEENT: Disheveled moist mucous membranes CARDIOVASCULAR: S1-S2 regular. RESPIRATORY: Clear to auscultation. ABDOMINAL: Obese bowel sounds present abdomen soft EXTREMITIES: Status post BKA on the left he is wearing his prosthesis no cyanosis or edema on the right good range of motion on the right ankle NEUROLOGICAL: No Focal deficits LABORATORY DATA: Please see below. 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 Problem #1 acute renal failure: The patient was dehydrated on presentation he was rehydrated and his diuretic was held, his renal function appears to have returned to its baseline there is some subtle fluctuation which we are simply monitoring. We have not restarted his diuretic or his PHILIPPE inhibitor as of yet we will continue to monitor his fluid status and blood pressure daily and restart as appropriate. Problem #2 right ankle sprain: MRI reviewed the patient continues to work with physical therapy his pain is improving as well. At this time physical therapy feels that he is not safe he will likely need at least subacute rehabilitation Problem #3 hypothyroidism continue with hormone replacement therapy Problem #4 peripheral vascular disease patient is status post stenting. Stable Problem #5 hypertension the patient's PHILIPPE inhibitor diuretic are on hold he is on Norvasc BP is well controlled DISPOSITION: Currently seeking subacute rehabilitation placement versus penitentiary facility, patient informed me he wishes to decline bed offer made thus far. VS, I&O, 24H, Fishbone VS, I&O, 24H, Fishbone Vital Signs Date Time Temp Pulse Resp B/P Pulse Ox O2 Delivery O2 Flow Rate FiO2 08/02/16 09:12 68 128/60 08/02/16 09:00 Room Air 08/02/16 06:00 98.1 22 92 I&O- Last 24 Hours up to 6 AM 08/02/16 06:00 Intake Total 960 ml Output Total 1025 ml Balance -65 ml Laboratory Tests 2 08/02/16 06:23: Anion Gap 9, Blood Urea Nitrogen 25H, Creatinine 1.38H, Sodium Level 141, Potassium Level 4.1, Chloride Level 106, Carbon Dioxide Level 26, Calcium Level 9.2, Glomerular Filtration Rate 54.9, Magnesium Level 2.0 Laboratory Tests 08/02/16 06:23 Calcium Level 9.2, Red Blood Count 4.28 L, Mean Corpuscular Volume 82.6, Mean Corpuscular Hemoglobin 27.7, Mean Corpuscular Hemoglobin Concent 33.5, Red Cell Distribution Width 15.5 H Microbiology 07/27/16 Blood Culture - Final, Complete NO GROWTH AFTER 5 DAYS 07/28/16 Urine Culture - Final, Complete JAXON REYNOLDS MD Aug 02, 2016 13:45
[2016-08-02 14:00] VITALS: BP 147/67
[2016-08-02 22:00] VITALS: BP 149/74
[2016-08-03] MEDS: LEVOTHYROXINE 0.05 MG TAB (50 MCG) PO SCH (05:17)
[2016-08-03 06:00] VITALS: BP 141/67
[2016-08-03 08:42] LABS: MEAN CORPUSCULAR HEMOGLOBIN 27.5 pg (27.0-33.0); MEAN CORPUSCULAR HGB CONC 32.5 g/dl (32.0-36.5); MEAN CORPUSCULAR VOLUME 84.8 fl (80.0-96.0); RED CELL DISTRIBUTION WIDTH 14.4 % (11.5-14.5); WHITE BLOOD COUNT 8.9 K/mm3 (4.0-10.0)
[2016-08-03 09:00] LABS: CALCIUM LEVEL 9.1 MG/DL (8.8-10.2); CREATININE FOR GFR 1.35 MG/DL (0.70-1.30); GLOMERULAR FILTRATION RATE 56.3 (>49); POTASSIUM SERUM 4.4 MEQ/L (3.5-5.1)
[2016-08-03] MEDS: ASPIRIN ENTERIC 325 MG TAB PO SCH (09:05)
[2016-08-03] MEDS: PANTOPRAZOLE 40MG TAB (PROTONIX) PO SCH (09:06)
[2016-08-03] MEDS: amLODIPine 10 MG TAB PO SCH (09:06)
[2016-08-03] MEDS: SENOKOT S TAB PO SCH ×2 (09:06→21:33)
[2016-08-03] MEDS: NYSTATIN 100,000 UNITS/GM TOPICAL PWD 15 GM TOP SCH ×2 (09:06→21:33)
[2016-08-03] MEDS: MULTIVITAMINS/MINERALS THERAP 1 TAB PO SCH (09:06)
[2016-08-03] MEDS: HEPARIN SOD (PORCINE) 5000 UNITS/ML VIAL SC SCH ×2 (09:06→21:33)
[2016-08-03 14:00] VITALS: BP 154/64
--- NOTE | 2016-08-03 14:20 | IPNPDOC ---
Date of Service/Time 08/03/16 Progress Note SUBJECTIVE: The patient feels well patient has no new complaints OBJECTIVE: PHYSICAL EXAMINATION: VITAL SIGNS: Please see below. GENERAL: Disheveled elderly man obese sitting on the edge of his bed HEENT: Disheveled moist mucous membranes cranial nerves II through XII are grossly intact CARDIOVASCULAR: S1-S2 regular. No additional heart sounds appreciated RESPIRATORY: Clear to auscultation. ABDOMINAL: Obese bowel sounds present abdomen soft EXTREMITIES: Status post BKA on the left he is wearing his prosthesis no cyanosis or edema on the right good range of motion on the right ankle NEUROLOGICAL: No Focal deficits LABORATORY DATA: Please see below. 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 Problem #1 acute renal failure: The patient was dehydrated on presentation he was rehydrated and his diuretic was held, his renal function appears to have returned to its baseline there is some subtle fluctuation which we are simply monitoring. We have not restarted his diuretic or his PHILIPPE inhibitor as of yet we will continue to monitor his fluid status and blood pressure daily and restart as appropriate. Problem #2 right ankle sprain: MRI reviewed the patient continues to work with physical therapy his pain is improving as well. At this time physical therapy feels that he is not safe he will likely need at least subacute rehabilitation Problem #3 hypothyroidism continue with hormone replacement therapy Problem #4 peripheral vascular disease patient is status post stenting. Stable Problem #5 hypertension the patient's PHILIPPE inhibitor diuretic are on hold he is on Norvasc BP is well controlled DISPOSITION: Currently seeking subacute rehabilitation placement versus alf facility VS, I&O, 24H, Fishbone VS, I&O, 24H, Fishbone Vital Signs Date Time Temp Pulse Resp B/P Pulse Ox O2 Delivery O2 Flow Rate FiO2 08/03/16 09:00 Room Air 08/03/16 06:00 98.0 64 24 141/67 93 I&O- Last 24 Hours up to 6 AM 08/03/16 06:00 Intake Total 1320 ml Output Total 875 ml Balance 445 ml Laboratory Tests 2 08/03/16 08:09: Anion Gap 11, Blood Urea Nitrogen 25H, Creatinine 1.35H, Sodium Level 142, Potassium Level 4.4, Chloride Level 106, Carbon Dioxide Level 25, Calcium Level 9.1, Glomerular Filtration Rate 56.3 Laboratory Tests 08/03/16 08:09 Calcium Level 9.1, Red Blood Count 4.60, Mean Corpuscular Volume 84.8, Mean Corpuscular Hemoglobin 27.5, Mean Corpuscular Hemoglobin Concent 32.5, Red Cell Distribution Width 14.4 Microbiology 07/27/16 Blood Culture - Final, Complete NO GROWTH AFTER 5 DAYS 07/28/16 Urine Culture - Final, Complete JAXON REYNOLDS MD Aug 03, 2016 14:20
[2016-08-03 22:00] VITALS: BP 139/74
[2016-08-04] MEDS: LEVOTHYROXINE 0.05 MG TAB (50 MCG) PO SCH (05:31)
[2016-08-04 06:00] VITALS: BP 135/71
[2016-08-04 06:49] LABS: MEAN CORPUSCULAR HEMOGLOBIN 27.8 pg (27.0-33.0); MEAN CORPUSCULAR HGB CONC 33.2 g/dl (32.0-36.5); MEAN CORPUSCULAR VOLUME 83.8 fl (80.0-96.0); RED CELL DISTRIBUTION WIDTH 14.5 % (11.5-14.5); WHITE BLOOD COUNT 9.3 K/mm3 (4.0-10.0)
[2016-08-04 07:01] LABS: CALCIUM LEVEL 9.3 MG/DL (8.8-10.2); CREATININE FOR GFR 1.36 MG/DL (0.70-1.30); GLOMERULAR FILTRATION RATE 55.8 (>49)
[2016-08-04] MEDS: amLODIPine 10 MG TAB PO SCH (08:39)
[2016-08-04] MEDS: PANTOPRAZOLE 40MG TAB (PROTONIX) PO SCH (08:39)
[2016-08-04] MEDS: ASPIRIN ENTERIC 325 MG TAB PO SCH (08:39)
[2016-08-04] MEDS: SENOKOT S TAB PO SCH ×2 (08:39→20:10)
[2016-08-04] MEDS: MULTIVITAMINS/MINERALS THERAP 1 TAB PO SCH (08:39)
[2016-08-04] MEDS: HEPARIN SOD (PORCINE) 5000 UNITS/ML VIAL SC SCH ×2 (08:39→20:10)
[2016-08-04] MEDS: NYSTATIN 100,000 UNITS/GM TOPICAL PWD 15 GM TOP SCH ×2 (08:39→20:10)
--- NOTE | 2016-08-04 12:35 | IPNPDOC ---
Date of Service/Time 08/04/16 Progress Note SUBJECTIVE: No complaints today OBJECTIVE: PHYSICAL EXAMINATION: VITAL SIGNS: Please see below. GENERAL: Disheveled elderly man obese laying in his bed HEENT: Disheveled, moist mucous membranes cranial nerves II through XII are grossly intact CARDIOVASCULAR: S1-S2 regular. RESPIRATORY: Clear to auscultation. ABDOMINAL: Obese bowel sounds present abdomen benign EXTREMITIES: Status post BKA on the left he is wearing his prosthesis no cyanosis or edema on the right NEUROLOGICAL: No Focal deficits LABORATORY DATA: Please see below. 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 Problem #1 acute renal failure: The patient was dehydrated on presentation he was rehydrated and his diuretic was held, his renal function appears to have returned to its baseline there is some subtle fluctuation which we are simply monitoring. We have not restarted his diuretic or his PHILIPPE inhibitor as of yet. He does not seem to require the diuretic at least while on a salt restricted diet and given that he was dehydrated on admission he may require a lower dose at discharge. we will continue to monitor his fluid status and blood pressure daily and restart as appropriate. Problem #2 right ankle sprain: MRI reviewed the patient continues to work with physical therapy his pain is improving as well. At this time physical therapy feels that he is not safe he will likely need at least subacute rehabilitation Problem #3 hypothyroidism continue with hormone replacement therapy Problem #4 peripheral vascular disease patient is status post previous stenting disease is Stable Problem #5 hypertension the patient's PHILIPPE inhibitor diuretic are on hold he is on Norvasc BP is well controlled DISPOSITION: Currently seeking subacute rehabilitation placement versus alf facility VS, I&O, 24H, Fishbone VS, I&O, 24H, Fishbone Vital Signs Date Time Temp Pulse Resp B/P Pulse Ox O2 Delivery O2 Flow Rate FiO2 08/04/16 09:00 Room Air 08/04/16 08:39 66 124/65 08/04/16 06:00 98.0 22 92 I&O- Last 24 Hours up to 6 AM 08/04/16 06:00 Intake Total 1680 ml Output Total 575 ml Balance 1105 ml Laboratory Tests 2 08/04/16 06:35: Anion Gap 9, Blood Urea Nitrogen 27H, Creatinine 1.36H, Sodium Level 140, Potassium Level 4.0, Chloride Level 106, Carbon Dioxide Level 25, Calcium Level 9.3, Glomerular Filtration Rate 55.8 Laboratory Tests 08/04/16 06:35 Calcium Level 9.3, Red Blood Count 4.49, Mean Corpuscular Volume 83.8, Mean Corpuscular Hemoglobin 27.8, Mean Corpuscular Hemoglobin Concent 33.2, Red Cell Distribution Width 14.5 Microbiology 07/27/16 Blood Culture - Final, Complete NO GROWTH AFTER 5 DAYS 07/28/16 Urine Culture - Final, Complete JAXON REYNOLDS MD Aug 04, 2016 12:35
[2016-08-04 14:00] VITALS: BP 132/66
[2016-08-04 22:00] VITALS: BP 143/66
[2016-08-05 05:49] LABS: MEAN CORPUSCULAR HEMOGLOBIN 28.1 pg (27.0-33.0); MEAN CORPUSCULAR HGB CONC 32.8 g/dl (32.0-36.5); MEAN CORPUSCULAR VOLUME 85.5 fl (80.0-96.0); RED CELL DISTRIBUTION WIDTH 14.5 % (11.5-14.5); WHITE BLOOD COUNT 9.4 K/mm3 (4.0-10.0)
[2016-08-05] MEDS: LEVOTHYROXINE 0.05 MG TAB (50 MCG) PO SCH (05:55)
[2016-08-05 06:00] VITALS: BP 137/65
[2016-08-05 06:09] LABS: ANION GAP 11 MEQ/L (8-16); BLOOD UREA NITROGEN 24 MG/DL (7-18); CALCIUM LEVEL 9.3 MG/DL (8.8-10.2); CARBON DIOXIDE LEVEL 24 MEQ/L (21-32); CHLORIDE LEVEL 107 MEQ/L (98-107); CREATININE FOR GFR 1.24 MG/DL (0.70-1.30); GLOMERULAR FILTRATION RATE > 60.0 (>49); GLUCOSE, FASTING 94 MG/DL (80-110); SODIUM LEVEL 142 MEQ/L (136-145)
[2016-08-05] MEDS: HEPARIN SOD (PORCINE) 5000 UNITS/ML VIAL SC SCH ×2 (09:03→21:00)
[2016-08-05] MEDS: MULTIVITAMINS/MINERALS THERAP 1 TAB PO SCH (09:04)
[2016-08-05] MEDS: NYSTATIN 100,000 UNITS/GM TOPICAL PWD 15 GM TOP SCH ×2 (09:04→20:57)
[2016-08-05] MEDS: ASPIRIN ENTERIC 325 MG TAB PO SCH (09:04)
[2016-08-05] MEDS: amLODIPine 10 MG TAB PO SCH (09:04)
[2016-08-05] MEDS: PANTOPRAZOLE 40MG TAB (PROTONIX) PO SCH (09:04)
[2016-08-05] MEDS: SENOKOT S TAB PO SCH ×2 (09:04→20:56)
--- NOTE | 2016-08-05 11:44 | IPNPDOC ---
Date of Service/Time 08/05/16 Progress Note SUBJECTIVE: No complaints today whatsoever OBJECTIVE: PHYSICAL EXAMINATION: VITAL SIGNS: Please see below. GENERAL: Disheveled elderly man obese laying in his bed no distress HEENT: Disheveled, moist mucous membranes cranial nerves II through XII are grossly intact CARDIOVASCULAR: S1-S2 regular. RESPIRATORY: Clear to auscultation. ABDOMINAL: Obese bowel sounds present abdomen benign EXTREMITIES: Status post BKA on the left he is wearing his prosthesis no cyanosis or edema on the right NEUROLOGICAL: No Focal deficits LABORATORY DATA: Please see below. 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 Problem #1 acute renal failure: The patient was dehydrated on presentation he was rehydrated and his diuretic was held, his renal function appears to have returned to its baseline there is some subtle fluctuation which we are simply monitoring. We have not restarted his diuretic or his PHILIPPE inhibitor as of yet. He does not seem to require the diuretic at least while on a salt restricted diet and given that he was dehydrated on admission he may require a lower dose at discharge. we will continue to monitor his fluid status and blood pressure daily and restart as appropriate. Problem #2 right ankle sprain: MRI reviewed the patient continues to work with physical therapy his pain is improving as well. At this time physical therapy feels that he is not safe he will likely need at least subacute rehabilitation Problem #3 hypothyroidism continue with hormone replacement therapy Problem #4 peripheral vascular disease patient is status post previous stenting disease is Stable Problem #5 hypertension the patient's PHILIPPE inhibitor diuretic are on hold he is on Norvasc BP is well controlled DISPOSITION: Currently seeking subacute rehabilitation placement versus [facility] facility VS, I&O, 24H, Fish[facility] VS, I&O, 24H, Fishbone Vital Signs Date Time Temp Pulse Resp B/P Pulse Ox O2 Delivery O2 Flow Rate FiO2 08/05/16 09:04 64 137/65 08/05/16 08:30 Room Air 08/05/16 06:00 97.0 19 92 I&O- Last 24 Hours up to 6 AM 08/05/16 05:59 Intake Total 2880 ml Output Total 1100 ml Balance 1780 ml Laboratory Tests 2 08/05/16 05:40: Anion Gap 11, Blood Urea Nitrogen 24H, Creatinine 1.24, Sodium Level 142, Potassium Level 4.0, Chloride Level 107, Carbon Dioxide Level 24, Calcium Level 9.3, Glomerular Filtration Rate > 60.0 Laboratory Tests 08/05/16 05:40 Calcium Level 9.3, Red Blood Count 4.36, Mean Corpuscular Volume 85.5, Mean Corpuscular Hemoglobin 28.1, Mean Corpuscular Hemoglobin Concent 32.8, Red Cell Distribution Width 14.5 Microbiology 07/27/16 Blood Culture - Final, Complete NO GROWTH AFTER 5 DAYS 07/28/16 Urine Culture - Final, Complete JAXON REYNOLDS MD Aug 05, 2016 11:44
[2016-08-05 14:00] VITALS: BP 133/72
[2016-08-05 22:00] VITALS: BP 137/73
[2016-08-06 06:00] VITALS: BP 114/58
[2016-08-06] MEDS: LEVOTHYROXINE 0.05 MG TAB (50 MCG) PO SCH (06:04)
[2016-08-06 06:41] LABS: MEAN CORPUSCULAR HEMOGLOBIN 27.6 pg (27.0-33.0); MEAN CORPUSCULAR HGB CONC 32.6 g/dl (32.0-36.5); MEAN CORPUSCULAR VOLUME 84.4 fl (80.0-96.0); RED CELL DISTRIBUTION WIDTH 14.3 % (11.5-14.5); WHITE BLOOD COUNT 8.8 K/mm3 (4.0-10.0)
[2016-08-06 06:48] LABS: CALCIUM LEVEL 8.9 MG/DL (8.8-10.2); CREATININE FOR GFR 1.28 MG/DL (0.70-1.30); GLOMERULAR FILTRATION RATE 59.9 (>49)
[2016-08-06] MEDS: MULTIVITAMINS/MINERALS THERAP 1 TAB PO SCH (09:07)
[2016-08-06] MEDS: NYSTATIN 100,000 UNITS/GM TOPICAL PWD 15 GM TOP SCH ×2 (09:07→21:14)
[2016-08-06] MEDS: PANTOPRAZOLE 40MG TAB (PROTONIX) PO SCH (09:07)
[2016-08-06] MEDS: amLODIPine 10 MG TAB PO SCH (09:07)
[2016-08-06] MEDS: SENOKOT S TAB PO SCH ×2 (09:07→21:13)
[2016-08-06] MEDS: ASPIRIN ENTERIC 325 MG TAB PO SCH (09:07)
--- NOTE | 2016-08-06 11:08 | IPNPDOC ---
Date of Service/Time 08/06/16 Progress Note SUBJECTIVE: No complaints he tells me he has an uneventful New Year's [place] OBJECTIVE: PHYSICAL EXAMINATION: VITAL SIGNS: Please see below. GENERAL: Disheveled elderly man obese laying in his bed no distress HEENT: Disheveled, moist mucous membranes CARDIOVASCULAR: S1-S2 regular. RESPIRATORY: Clear to auscultation. ABDOMINAL: Obese bowel sounds present EXTREMITIES: Status post BKA on the left no cyanosis or edema on the right NEUROLOGICAL: No Focal deficits LABORATORY DATA: Please see below. 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 Problem #1 acute renal failure: The patient was dehydrated on presentation he was rehydrated and his diuretic was held, his renal function appears to have returned to its baseline. We have not restarted his diuretic or his PHILIPPE inhibitor as of yet. He does not seem to require the diuretic at least while on a salt restricted diet and given that he was dehydrated on admission he may require a lower dose at discharge. Problem #2 right ankle sprain: MRI reviewed the patient continues to work with physical therapy, his pain is improving as well. At this time physical therapy feels that he is not safe he will likely need at least subacute rehabilitation Problem #3 hypothyroidism continue with hormone replacement therapy Problem #4 peripheral vascular disease patient is status post previous stenting disease is Stable Problem #5 hypertension the patient's PHILIPPE inhibitor diuretic are on hold he is on Norvasc BP is well controlled DISPOSITION: Currently seeking subacute rehabilitation placement [facility] VS, I&O, 24H, [facility] VS, I&O, 24H, J[facility] Vital Signs Date Time Temp Pulse Resp B/P Pulse Ox O2 Delivery O2 Flow Rate FiO2 08/06/16 09:07 66 157/71 08/06/16 06:00 98.1 19 93 Room Air I&O- Last 24 Hours up to 6 AM 08/06/16 06:00 Intake Total 1060 ml Output Total 845 ml Balance 215 ml Laboratory Tests 2 08/06/16 05:55: Anion Gap 11, Blood Urea Nitrogen 22H, Creatinine 1.28, Sodium Level 141, Potassium Level 4.0, Chloride Level 106, Carbon Dioxide Level 24, Calcium Level 8.9, Glomerular Filtration Rate 59.9 Laboratory Tests 08/06/16 05:55 Calcium Level 8.9, Red Blood Count 4.49, Mean Corpuscular Volume 84.4, Mean Corpuscular Hemoglobin 27.6, Mean Corpuscular Hemoglobin Concent 32.6, Red Cell Distribution Width 14.3 Microbiology 07/27/16 Blood Culture - Final, Complete NO GROWTH AFTER 5 DAYS 07/28/16 Urine Culture - Final, Complete JAXON REYNOLDS MD Aug 06, 2016 11:08
[2016-08-06 14:00] VITALS: BP 112/78
[2016-08-06] MEDS: HEPARIN SOD (PORCINE) 5000 UNITS/ML VIAL SC SCH ×2 (14:13→21:13)
[2016-08-06 21:24] VITALS: BP 146/77
[2016-08-07] MEDS: LEVOTHYROXINE 0.05 MG TAB (50 MCG) PO SCH (05:30)
[2016-08-07 05:34] VITALS: BP 142/70
[2016-08-07 06:24] LABS: MEAN CORPUSCULAR HEMOGLOBIN 27.5 pg (27.0-33.0); MEAN CORPUSCULAR HGB CONC 32.4 g/dl (32.0-36.5); RED CELL DISTRIBUTION WIDTH 14.4 % (11.5-14.5); WHITE BLOOD COUNT 9.8 K/mm3 (4.0-10.0)
[2016-08-07 06:38] LABS: ANION GAP 10 MEQ/L (8-16); BLOOD UREA NITROGEN 23 MG/DL (7-18); CALCIUM LEVEL 9.2 MG/DL (8.8-10.2); CARBON DIOXIDE LEVEL 24 MEQ/L (21-32); CHLORIDE LEVEL 107 MEQ/L (98-107); CREATININE FOR GFR 1.27 MG/DL (0.70-1.30); GLOMERULAR FILTRATION RATE > 60.0 (>49); GLUCOSE, FASTING 95 MG/DL (80-110); POTASSIUM SERUM 3.9 MEQ/L (3.5-5.1); SODIUM LEVEL 141 MEQ/L (136-145)
[2016-08-07] MEDS: ASPIRIN ENTERIC 325 MG TAB PO SCH (08:26)
[2016-08-07] MEDS: SENOKOT S TAB PO SCH ×2 (08:26→20:10)
[2016-08-07] MEDS: MULTIVITAMINS/MINERALS THERAP 1 TAB PO SCH (08:26)
[2016-08-07] MEDS: HEPARIN SOD (PORCINE) 5000 UNITS/ML VIAL SC SCH ×2 (08:26→20:10)
[2016-08-07] MEDS: PANTOPRAZOLE 40MG TAB (PROTONIX) PO SCH (08:26)
[2016-08-07] MEDS: NYSTATIN 100,000 UNITS/GM TOPICAL PWD 15 GM TOP SCH ×2 (08:26→20:11)
[2016-08-07] MEDS: amLODIPine 10 MG TAB PO SCH (08:28)
[2016-08-07 14:00] VITALS: BP 122/67
--- NOTE | 2016-08-07 15:07 | IPNPDOC ---
Date of Service/Time 08/07/16 Progress Note SUBJECTIVE: No complaints feels well OBJECTIVE: PHYSICAL EXAMINATION: VITAL SIGNS: Please see below. GENERAL: Disheveled elderly man obese sitting on the side of his bed no distress HEENT: Disheveled, moist mucous membranes CARDIOVASCULAR: S1-S2 regular. RESPIRATORY: Clear to auscultation. ABDOMINAL: Obese bowel sounds present EXTREMITIES: Status post BKA on the left no cyanosis or edema on the right NEUROLOGICAL: No Focal deficits LABORATORY DATA: Please see below. 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 Problem #1 acute renal failure: The patient was dehydrated on presentation he was rehydrated and his diuretic was held, his renal function appears to have returned to its baseline. We haverestarted his PHILIPPE inhibitor today. He does not seem to require the diuretic at least while on a salt restricted diet and given that he was dehydrated on admission he may require a lower dose at discharge. Problem #2 right ankle sprain: MRI reviewed the patient continues to work with physical therapy, his pain is improving as well. At this time physical therapy feels that he is not safe he will likely need at least subacute rehabilitation Problem #3 hypothyroidism continue with hormone replacement therapy Problem #4 peripheral vascular disease patient is status post previous stenting disease is Stable Problem #5 hypertension the patient is on a PHILIPPE inhibitor and on Norvasc, BP is well controlled DISPOSITION: Currently [facility]&O, 24H, [facility] VS, I&O, 24H, Fishbone Vital Signs Date Time Temp Pulse Resp B/P Pulse Ox O2 Delivery O2 Flow Rate FiO2 08/07/16 09:00 Room Air 08/07/16 08:28 62 137/66 08/07/16 05:34 98.4 18 93 I&O- Last 24 Hours up to 6 AM 08/07/16 06:00 Intake Total 1320 ml Output Total 700 ml Balance 620 ml Laboratory Tests 2 08/07/16 06:11: Anion Gap 10, Blood Urea Nitrogen 23H, Creatinine 1.27, Sodium Level 141, Potassium Level 3.9, Chloride Level 107, Carbon Dioxide Level 24, Calcium Level 9.2, Glomerular Filtration Rate > 60.0 Laboratory Tests 08/07/16 06:11 Calcium Level 9.2, Red Blood Count 4.38, Mean Corpuscular Volume 85.0, Mean Corpuscular Hemoglobin 27.5, Mean Corpuscular Hemoglobin Concent 32.4, Red Cell Distribution Width 14.4 Microbiology 07/28/16 Urine Culture - Final, Complete JAXON REYNOLDS MD Aug 07, 2016 15:07
[2016-08-07] MEDS: LISINOPRIL *2.5 MG* TAB PO SCH (15:25)
[2016-08-07 22:00] VITALS: BP 119/68
[2016-08-08] MEDS: LEVOTHYROXINE 0.05 MG TAB (50 MCG) PO SCH (05:50)
[2016-08-08 06:00] VITALS: BP 102/54
[2016-08-08 06:35] LABS: MEAN CORPUSCULAR HEMOGLOBIN 27.4 pg (27.0-33.0); MEAN CORPUSCULAR VOLUME 85.8 fl (80.0-96.0); RED CELL DISTRIBUTION WIDTH 14.5 % (11.5-14.5); WHITE BLOOD COUNT 9.3 K/mm3 (4.0-10.0)
[2016-08-08 06:47] LABS: CALCIUM LEVEL 8.9 MG/DL (8.8-10.2); CREATININE FOR GFR 1.34 MG/DL (0.70-1.30); GLOMERULAR FILTRATION RATE 56.8 (>49); POTASSIUM SERUM 3.9 MEQ/L (3.5-5.1)
[2016-08-08] MEDS: HEPARIN SOD (PORCINE) 5000 UNITS/ML VIAL SC SCH ×2 (10:10→21:10)
[2016-08-08] MEDS: PANTOPRAZOLE 40MG TAB (PROTONIX) PO SCH (10:11)
[2016-08-08] MEDS: MULTIVITAMINS/MINERALS THERAP 1 TAB PO SCH (10:11)
[2016-08-08] MEDS: ASPIRIN ENTERIC 325 MG TAB PO SCH (10:12)
[2016-08-08] MEDS: SENOKOT S TAB PO SCH ×2 (10:12→21:10)
[2016-08-08] MEDS: amLODIPine 10 MG TAB PO SCH (10:12)
[2016-08-08] MEDS: LISINOPRIL *2.5 MG* TAB PO SCH (10:13)
[2016-08-08] MEDS: NYSTATIN 100,000 UNITS/GM TOPICAL PWD 15 GM TOP SCH ×2 (10:15→21:10)
[2016-08-08 14:00] VITALS: BP 116/61
--- NOTE | 2016-08-08 15:04 | IPN ---
DATE: 08/08/2016 Mr. Ribera is feeling well today. He says that his ankle is not as painful as it was when we admitted him and then when I last saw him approximately 9 days ago. He is eating and drinking. He has no complaints of pain, chest pain, shortness of breath. Temperature is 97.3, pulse 61, respiratory rate 20, blood pressure is 117/54, 94% on room air. Positive fluid balance of 955, one bowel movement yesterday. Weight is 90, Body Mass Index (BMI) is 30.6. He is awake, appropriately interactive, pleasantly conversant. Mucous membranes are moist. He appears to recognize me from previous encounters. Breathing is symmetrical, rested. Heart has regular rate and rhythm. Abdomen is soft, doughy, nontender. White cell count 9.3, hemoglobin 11.6, platelets of 307. BUN 22, creatinine 1.34. ASSESSMENT: This is a 66-year-old with acute renal failure and right ankle sprain. PLAN: 1. The patient's acute renal failure appears to be at baseline, although today with the restart of the PHILIPPE inhibitor it has trended upward. We shall continue to monitor this going forward. 2. The patient has right ankle sprain. He is working with physical therapy (PT) and requires subacute rehabilitation. 3. The patient has hypothyroidism. 4. The patient has peripheral vascular disease. 5. The patient has hypertension with a blood pressure that may be slightly too well controlled. I will continue to monitor this clinically.
[2016-08-08 22:00] VITALS: BP 126/62
[2016-08-09] MEDS: LEVOTHYROXINE 0.05 MG TAB (50 MCG) PO SCH (05:29)
[2016-08-09 05:48] LABS: MEAN CORPUSCULAR HEMOGLOBIN 27.6 pg (27.0-33.0); MEAN CORPUSCULAR HGB CONC 31.7 g/dl (32.0-36.5); MEAN CORPUSCULAR VOLUME 87.1 fl (80.0-96.0); RED CELL DISTRIBUTION WIDTH 15.4 % (11.5-14.5); WHITE BLOOD COUNT 10.3 K/mm3 (4.0-10.0)
[2016-08-09 06:00] VITALS: BP 141/68
[2016-08-09 06:04] LABS: CALCIUM LEVEL 8.7 MG/DL (8.8-10.2); CREATININE FOR GFR 1.31 MG/DL (0.70-1.30); GLOMERULAR FILTRATION RATE 58.3 (>49); POTASSIUM SERUM 3.9 MEQ/L (3.5-5.1)
[2016-08-09] MEDS ORDERED: SENN1TAB2 PO (08:34)
[2016-08-09] MEDS ORDERED: NYST10PW TOP (08:34)
[2016-08-09] MEDS: SENOKOT S TAB PO SCH (09:09)
[2016-08-09] MEDS: MULTIVITAMINS/MINERALS THERAP 1 TAB PO SCH (09:09)
[2016-08-09] MEDS: ASPIRIN ENTERIC 325 MG TAB PO SCH (09:09)
[2016-08-09] MEDS: PANTOPRAZOLE 40MG TAB (PROTONIX) PO SCH (09:09)
[2016-08-09 09:10] VITALS: BP 145/69
[2016-08-09] MEDS: LISINOPRIL *2.5 MG* TAB PO SCH (09:10)
[2016-08-09] MEDS: HEPARIN SOD (PORCINE) 5000 UNITS/ML VIAL SC SCH (09:10)
[2016-08-09] MEDS: NYSTATIN 100,000 UNITS/GM TOPICAL PWD 15 GM TOP SCH (09:10)
[2016-08-09] MEDS: amLODIPine 10 MG TAB PO SCH (09:10)
--- NOTE | 2016-08-09 15:54 | DSES ---
DATE OF ADMISSION: 07/26/2016 DATE OF DISCHARGE: 08/09/2016 SPECIALISTS INVOLVED WITH HIS CARE: None. There were no complications during his stay. No procedures performed during his stay. DISCHARGE DIAGNOSES: 1. Acute renal failure. 2. Right ankle sprain. 3. Hypothyroidism. 4. Peripheral vascular disease. 5. Hypertension. SUMMARY OF HIS HOSPITALIZATION: This is a 66-year-old who suffered a mechanical fall related to right ankle pain. He has a left above the knee amputation which is not new. He was brought to the hospital. Workup was begun looking for evidence of fracture or other injury to the right ankle that included an MRI. There was no evidence of fracture, osteomyelitis, or other cause. He was also treated for acute renal failure during his stay with his creatinine at 1.79 at the time of presentation which had leveled out at around 1.31 at the time of discharge which appears to be his baseline. He worked with physical therapy during his stay and is deemed appropriate for subacute rehabilitation. On the day of discharge, he is feeling well. Pain is controlled. No complaints of chest pain or shortness of breath. He has been tolerating a diet and having normal bowel movements. PHYSICAL EXAMINATION: VITAL SIGNS: Temperature is 97, pulse is 60, respiratory rate 18, blood pressure 141/68, 95% on room air. GENERAL: He is awake and alert, pleasant and easily conversant. RESPIRATORY: Breathing is symmetrical and rested. HEART: Distant sounding. ABDOMEN: Soft, doughy, nontender. His last bowel movement was on 08/07/2016. LABORATORY DATA: White cell count is 10.3, hemoglobin 11.4, and platelets of 287. BUN 23, creatinine 1.13. DISCHARGE INSTRUCTIONS: Include the followin. Discharge to [facility]. 2. Activity as tolerated. 3. Consistent-carbohydrate diet. MEDICATIONS AT THE TIME OF DISCHARGE: Include: - Nystatin powder topically twice a day as needed - Senokot-S one tablet by mouth twice a day - Tylenol as needed - Norvasc 10 mg by mouth daily - aspirin 325 mg by mouth daily - Colace 100 mg by mouth twice a day - hydrochlorothiazide 25 mg by mouth daily - Synthroid 50 mcg by mouth daily - lisinopril 2.5 mg by mouth daily - Reglan 5 mg by mouth four times a day as needed for abdominal pain - multivitamin tablet daily - Protonix 40 mg by mouth daily
== END 2016-08-09 11:10 | DRG 563 ==
LOC: M ED 15:04 → M ED INP 19:45 → M MSPAV 20:58
PROVIDERS: ADMIT Hospitalist; ATTEND Internal Medicine
DX: S93.401A Sprain of unspecified ligament of right ankle, initial encounter (principal); N17.9 Acute kidney failure, unspecified; E03.9 Hypothyroidism, unspecified; I73.9 Peripheral vascular disease, unspecified; Z79.82 Long term (current) use of aspirin; Z79.899 Other long term (current) drug therapy; N18.9 Chronic kidney disease, unspecified; I12.9 Hypertensive chronic kidney disease with stage 1 through stage 4 chronic kidney disease, or unspecified chronic kidney disease; Z87.891 Personal history of nicotine dependence; Z66 Do not resuscitate; W18.30XA Fall on same level, unspecified, initial encounter; Y92.009 Unspecified place in unspecified non-institutional (private) residence as the place of occurrence of the external cause

== ENCOUNTER → 2016-09-14 | Outpatient (REF) | payer MEDICARE, MEDICAID ==
[~2016-09-14] MED LIST: AMLO10TA2 PO; ASPI325T28 PO; COLA100C PO; HYDR25TAB PO; LEVO50TA45 PO; LISI25TA PO; METO5TAB2 PO; NYST10PW TOP; PANT40TA2 PO; SENN1TAB2 PO; TYLE500T78 PO; VITMTA PO
[2016-09-14 09:11] LABS: CALCIUM LEVEL 8.8 MG/DL (8.8-10.2); CREATININE FOR GFR 1.34 MG/DL (0.70-1.30); GLOMERULAR FILTRATION RATE 56.8 (>49); POTASSIUM SERUM 3.9 MEQ/L (3.5-5.1)
== END ==
LOC: SKLAB5 08:00
DX: E78.00 Pure hypercholesterolemia, unspecified (principal); E03.9 Hypothyroidism, unspecified

== ENCOUNTER 2016-11-02 11:39 | Emergency (ER) | payer MEDICARE, MEDICAID ==
[~2016-11-02] VITALS: Ht 180.3 cm; Wt 98.4 kg
[~2016-11-02 11:39] MED LIST changes: -COLA100C PO; +COLA100C3 PO; +LISI2.5T76 PO; -LISI25TA PO
--- NOTE | 2016-11-02 12:49 | REP ---
Clinical: Trauma. Fall. Technique: Internal rotation, external rotation, and Y view of the right ankle. Comparison: 07/26/2016. Findings: Evidence for prior trauma and degenerative changes remain stable compared to prior examination. No acute fracture or dislocation identified ankle mortise intact. Impression: Evidence for old trauma and age-related degenerative changes. No acute fracture or dislocation appreciated. Signed by Kei Hess MD 11/02/2016 12:41 P
[2016-11-02 13:02] LABS: ALBUMIN/GLOBULIN RATIO 0.91 (1.00-1.93); BILIRUBIN,DIRECT 0.1 MG/DL (0.0-0.2); BILIRUBIN,TOTAL 0.5 MG/DL (0.2-1.0); CREATININE FOR GFR 1.77 MG/DL (0.70-1.30); GLOMERULAR FILTRATION RATE 41.2 (>49); POTASSIUM SERUM 3.7 MEQ/L (3.5-5.1); TOTAL PROTEIN 8.4 GM/DL (6.4-8.2)
[2016-11-02 13:04] LABS: MEAN CORPUSCULAR HEMOGLOBIN 26.3 pg (27.0-33.0); MEAN CORPUSCULAR HGB CONC 32.2 g/dl (32.0-36.5); MEAN CORPUSCULAR VOLUME 81.5 fl (80.0-96.0); RED CELL DISTRIBUTION WIDTH 14.3 % (11.5-14.5); WHITE BLOOD COUNT 14.1 K/mm3 (4.0-10.0)
[2016-11-02] MEDS ORDERED: ACET-654 PO (13:33)
[2016-11-02] MEDS ORDERED: LISI2.5T3 PO (13:33)
[2016-11-02] MEDS ORDERED: ATOR1TAB21 PO (13:34)
[2016-11-02] MEDS ORDERED: NS 1,000 ML IV SCH (14:00)
[2016-11-02 16:21] VITALS: BP 135/61
--- NOTE | 2016-11-03 16:30 | ECGEPIP ---
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
== END 2016-11-02 16:23 ==
LOC: M ED 13:21
DX: S93.401A Sprain of unspecified ligament of right ankle, initial encounter (principal); W19.XXXA Unspecified fall, initial encounter; Y92.099 Unspecified place in other non-institutional residence as the place of occurrence of the external cause; Y93.9 Activity, unspecified; Y99.9 Unspecified external cause status; I10 Essential (primary) hypertension; Z87.891 Personal history of nicotine dependence; Z79.82 Long term (current) use of aspirin; Z79.899 Other long term (current) drug therapy

== ENCOUNTER → 2016-11-09 | Outpatient (REF) | payer MEDICAID, MEDICARE ==
[~2016-11-09] MED LIST changes: +ACET-654 PO; +ATOR1TAB21 PO; +LISI2.5T3 PO
[2016-11-09 08:47] LABS: CALCIUM LEVEL 9.3 MG/DL (8.8-10.2); CREATININE FOR GFR 1.37 MG/DL (0.70-1.30); GLOMERULAR FILTRATION RATE 55.3 (>49); POTASSIUM SERUM 3.4 MEQ/L (3.5-5.1)
== END ==
LOC: SKLAB2 08:08
DX: Z86.718 Personal history of other venous thrombosis and embolism (principal)

== ENCOUNTER → 2016-11-16 | Outpatient (REF) ==
[2016-11-16 12:04] LABS: ANION GAP 9 MEQ/L (8-16); BLOOD UREA NITROGEN 19 MG/DL (7-18); CALCIUM LEVEL 9.3 MG/DL (8.8-10.2); CARBON DIOXIDE LEVEL 27 MEQ/L (21-32); CHLORIDE LEVEL 103 MEQ/L (98-107); CREATININE FOR GFR 1.24 MG/DL (0.70-1.30); GLOMERULAR FILTRATION RATE > 60.0 (>49); GLUCOSE, FASTING 116 MG/DL (80-110); POTASSIUM SERUM 3.8 MEQ/L (3.5-5.1); SODIUM LEVEL 139 MEQ/L (136-145)
== END ==
LOC: SKLAB2 08:24
DX: I10 Essential (primary) hypertension (principal)

== ENCOUNTER → 2016-12-11 | Outpatient (REF) ==
[2016-12-11 08:28] LABS: MEAN CORPUSCULAR HEMOGLOBIN 26.5 pg (27.0-33.0); MEAN CORPUSCULAR HGB CONC 32.5 g/dl (32.0-36.5); MEAN CORPUSCULAR VOLUME 81.7 fl (80.0-96.0); RED CELL DISTRIBUTION WIDTH 14.8 % (11.5-14.5); WHITE BLOOD COUNT 9.1 K/mm3 (4.0-10.0)
[2016-12-11 09:09] LABS: ANION GAP 10 MEQ/L (8-16); BLOOD UREA NITROGEN 14 MG/DL (7-18); CALCIUM LEVEL 8.8 MG/DL (8.8-10.2); CARBON DIOXIDE LEVEL 27 MEQ/L (21-32); CHLORIDE LEVEL 100 MEQ/L (98-107); CREATININE FOR GFR 1.26 MG/DL (0.70-1.30); GLOMERULAR FILTRATION RATE > 60.0 (>49); GLUCOSE, FASTING 94 MG/DL (80-110); POTASSIUM SERUM 3.4 MEQ/L (3.5-5.1); SODIUM LEVEL 137 MEQ/L (136-145)
[2016-12-11 10:47] LABS: MAGNESIUM LEVEL 1.9 MG/DL (1.8-2.4)
== END ==
LOC: SKLAB2 07:00
DX: I10 Essential (primary) hypertension (principal); D64.9 Anemia, unspecified

== ENCOUNTER → 2016-12-18 | Outpatient (REF) ==
[2016-12-18 09:21] LABS: CALCIUM LEVEL 8.9 MG/DL (8.8-10.2); CREATININE FOR GFR 1.3 MG/DL (0.70-1.30); GLOMERULAR FILTRATION RATE 58.8 (>49); POTASSIUM SERUM 2.9 MEQ/L (3.5-5.1)
== END ==
LOC: SKLAB2 08:30
DX: I10 Essential (primary) hypertension (principal)

== ENCOUNTER → 2016-12-21 | Outpatient (REF) | payer MEDICARE, MEDICAID ==
[2016-12-21 09:42] LABS: CALCIUM LEVEL 9.3 MG/DL (8.8-10.2); CREATININE FOR GFR 1.34 MG/DL (0.70-1.30); GLOMERULAR FILTRATION RATE 56.8 (>49); MAGNESIUM LEVEL 1.9 MG/DL (1.8-2.4); POTASSIUM SERUM 3.4 MEQ/L (3.5-5.1)
== END ==
LOC: SKLAB2 08:45
DX: E87.6 Hypokalemia (principal)

== ENCOUNTER → 2016-12-28 | Outpatient (REF) | payer MEDICARE, MEDICAID ==
[2016-12-28 09:55] LABS: CALCIUM LEVEL 9.1 MG/DL (8.8-10.2); CREATININE FOR GFR 1.35 MG/DL (0.70-1.30); GLOMERULAR FILTRATION RATE 56.3 (>49); POTASSIUM SERUM 3.5 MEQ/L (3.5-5.1)
== END ==
LOC: SKLAB2 07:00
DX: I10 Essential (primary) hypertension (principal)

== ENCOUNTER → 2017-02-14 | Outpatient (REF) | payer MEDICARE, MEDICAID ==
[~2017-02-14] MED LIST changes: +ACEP650S PR; -ACET-654 PO; +ACET1TAB17 PO; +BISA10SU5 PR; -COLA100C3 PO; +COLA100C5 PO; +ENEM1ENE4 PR; +MAGN64TASA PO; +MILKSUS PO; +POTA10SO11 PO; +RANI1TAB38 PO; +SENN-23 PO; +TYLE325T5 PO
--- NOTE | 2017-02-14 11:24 | REP ---
Chest two views HISTORY: Diminished lung sounds Comparison: 07/26/2016 A minimal increase in interstitial markings is present in the lower lobes consistent with chronic interstitial fibrosis. The heart is normal in size. The pulmonary vasculature is normal in appearance. The bony structure is intact. IMPRESSION: Bibasilar chronic interstitial fibrosis. Signed by Josr Hernandez MD 02/14/2017 11:15 A
[2017-02-14 13:16] LABS: BASO % 0.3 % (0.0-1.0); EOS # 0.1 K/mm3 (0.0-0.50); LARGE UNSTAINED CELL # 0.2 K/mm3 (0.0-0.4); LARGE UNSTAINED CELL % 1.5 % (0.0-4.0); LYMPH # 2.8 K/mm3 (1.5-4.5); LYMPH % 23.4 % (24.0-44.0); MEAN CORPUSCULAR VOLUME 78.7 fl (80.0-96.0); MONO # 0.7 K/mm3 (0.0-0.8); NEUTROPHILS # 7.8 K/mm3 (1.8-7.7); NEUTROPHILS % 67.8 % (36.0-66.0); PLATELET COUNT, AUTOMATED 225 k/mm3 (150-450); RED CELL DISTRIBUTION WIDTH 16.5 % (11.5-14.5); WHITE BLOOD COUNT 11.4 K/mm3 (4.0-10.0)
[2017-02-14 13:24] LABS: CALCIUM LEVEL 9.3 MG/DL (8.8-10.2); CREATININE FOR GFR 1.37 MG/DL (0.70-1.30); GLOMERULAR FILTRATION RATE 55.3 (>49); POTASSIUM SERUM 3.2 MEQ/L (3.5-5.1)
== END ==
LOC: SKLAB2 10:36
DX: R91.8 Other nonspecific abnormal finding of lung field (principal); I10 Essential (primary) hypertension; Z89.612 Acquired absence of left leg above knee

== ENCOUNTER → 2017-02-19 | Outpatient (REF) | payer MEDICARE, MEDICAID ==
[2017-02-19 09:15] LABS: ANION GAP 12 MEQ/L (8-16); BLOOD UREA NITROGEN 22 MG/DL (7-18); CALCIUM LEVEL 9.3 MG/DL (8.8-10.2); CARBON DIOXIDE LEVEL 23 MEQ/L (21-32); CHLORIDE LEVEL 104 MEQ/L (98-107); CREATININE FOR GFR 1.25 MG/DL (0.70-1.30); GLOMERULAR FILTRATION RATE > 60.0 (>49); GLUCOSE, FASTING 141 MG/DL (80-110); POTASSIUM SERUM 3.6 MEQ/L (3.5-5.1); SODIUM LEVEL 139 MEQ/L (136-145)
== END ==
LOC: SKLAB2 07:00
DX: I10 Essential (primary) hypertension (principal)

== ENCOUNTER → 2017-03-19 | Outpatient (REF) | payer MEDICARE, MEDICAID ==
[2017-03-19 09:43] LABS: MEAN CORPUSCULAR HEMOGLOBIN 26.2 pg (27.0-33.0); MEAN CORPUSCULAR HGB CONC 32.8 g/dl (32.0-36.5); MEAN CORPUSCULAR VOLUME 79.9 fl (80.0-96.0); RED CELL DISTRIBUTION WIDTH 17.4 % (11.5-14.5); WHITE BLOOD COUNT 7.4 K/mm3 (4.0-10.0)
[2017-03-19 10:05] LABS: ANION GAP 11 MEQ/L (8-16); BLOOD UREA NITROGEN 13 MG/DL (7-18); CALCIUM LEVEL 9.3 MG/DL (8.8-10.2); CARBON DIOXIDE LEVEL 24 MEQ/L (21-32); CHLORIDE LEVEL 107 MEQ/L (98-107); CREATININE FOR GFR 1.25 MG/DL (0.70-1.30); GLOMERULAR FILTRATION RATE > 60.0 (>49); GLUCOSE, FASTING 112 MG/DL (80-110); POTASSIUM SERUM 3.4 MEQ/L (3.5-5.1); SODIUM LEVEL 142 MEQ/L (136-145)
== END ==
LOC: SKLAB2 07:00
DX: I10 Essential (primary) hypertension (principal); D64.9 Anemia, unspecified

== ENCOUNTER → 2017-03-29 | Outpatient (REF) | payer MEDICARE, MEDICAID ==
[2017-03-29 08:53] LABS: ANION GAP 12 MEQ/L (8-16); BLOOD UREA NITROGEN 13 MG/DL (7-18); CALCIUM LEVEL 8.9 MG/DL (8.8-10.2); CARBON DIOXIDE LEVEL 24 MEQ/L (21-32); CHLORIDE LEVEL 107 MEQ/L (98-107); CREATININE FOR GFR 1.22 MG/DL (0.70-1.30); GLOMERULAR FILTRATION RATE > 60.0 (>49); GLUCOSE, FASTING 121 MG/DL (80-110); POTASSIUM SERUM 3.4 MEQ/L (3.5-5.1); SODIUM LEVEL 143 MEQ/L (136-145)
== END ==
LOC: SKLAB2 07:30
DX: I10 Essential (primary) hypertension (principal)

== ENCOUNTER 2017-04-01 22:42 | Emergency (ER) | payer MEDICARE, MEDICAID ==
[~2017-04-01] VITALS: Ht 180.3 cm; Wt 98.1 kg
[~2017-04-01 22:42] MED LIST changes: -ACEP650S PR; -BISA10SU5 PR; -ENEM1ENE4 PR; -MAGN64TASA PO; -MILKSUS PO; -POTA10SO11 PO; -RANI1TAB38 PO; -SENN-23 PO; -TYLE325T5 PO
[2017-04-01] MEDS ORDERED: NITROGLYCERIN 2% OINT 1 GM *U/D* PKT TOP ONE (23:00)
[2017-04-01] MEDS ORDERED: FUROSEMIDE 100 MG/10 ML VIAL (J1940) IV ONE (23:00)
--- NOTE | 2017-04-01 23:28 | REP ---
Clinical: Dyspnea. Comparison: 02/14/2017. Findings: Diffuse chronic interstitial changes are suggested with superimposed pulmonary interstitial edema/vascular congestion. Basilar atelectasis and small layering effusion cannot be excluded. Mild cardiomegaly remains stable. No pneumothorax. Skeletal structures intact. Impression: Interstitial edema/pulmonary vascular congestion suggested. Signed by Kei Hess MD 04/01/2017 11:20 P
[2017-04-01 23:55] LABS: BASO # 0.1 K/mm3 (0.0-0.2); BASO % 0.3 % (0.0-1.0); EOS # 0.1 K/mm3 (0.0-0.50); EOS % 0.4 % (0.0-3.0); LARGE UNSTAINED CELL # 0.2 K/mm3 (0.0-0.4); LARGE UNSTAINED CELL % 0.7 % (0.0-4.0); LYMPH # 1.7 K/mm3 (1.5-4.5); LYMPH % 7.8 % (24.0-44.0); MEAN CORPUSCULAR HEMOGLOBIN 26.2 pg (27.0-33.0); MEAN CORPUSCULAR HGB CONC 31.9 g/dl (32.0-36.5); MONO # 0.7 K/mm3 (0.0-0.8); MONO % 3.6 % (0.0-5.0); NEUTROPHILS # 17.3 K/mm3 (1.8-7.7); NEUTROPHILS % 87.2 % (36.0-66.0); PLATELET COUNT, AUTOMATED 323 k/mm3 (150-450); RED CELL DISTRIBUTION WIDTH 17.3 % (11.5-14.5); WHITE BLOOD COUNT 19.8 K/mm3 (4.0-10.0)
[2017-04-02 00:20] LABS: CALCIUM LEVEL 8.8 MG/DL (8.8-10.2); CREATININE FOR GFR 1.84 MG/DL (0.70-1.30); GLOMERULAR FILTRATION RATE 39.4 (>49); POTASSIUM SERUM 3.7 MEQ/L (3.5-5.1)
[2017-04-02] MEDS ORDERED: BISA10SU5 PR (00:20)
[2017-04-02] MEDS ORDERED: RANI1TAB38 PO (00:20)
[2017-04-02] MEDS ORDERED: POTA10SO11 PO (00:20)
[2017-04-02] MEDS ORDERED: TYLE325T5 PO (00:20)
[2017-04-02] MEDS ORDERED: MAGN64TASA PO (00:20)
[2017-04-02] MEDS ORDERED: ACEP650S PR (00:20)
[2017-04-02] MEDS ORDERED: ENEM1ENE4 PR (00:20)
[2017-04-02] MEDS ORDERED: MILKSUS PO (00:20)
[2017-04-02] MEDS ORDERED: VITMTA PO (00:20)
[2017-04-02] MEDS ORDERED: SENN-23 PO (00:21)
[2017-04-02] MEDS ORDERED: METOPROLOL 5 MG/5 ML VIAL IV STA (00:47)
[2017-04-02] MEDS ORDERED: HEPARIN DRIP 25,000 UNITS in APPROPRIATE DILUENT 1 EA IV SCH (01:06)
[2017-04-02] MEDS ORDERED: CLOPIDOGREL 75 MG TAB PO STA (01:10)
[2017-04-02] MEDS ORDERED: HEPARIN 25,000 UNITS/250 ML D5W BAG (100 UNITS/ML) As Ordered ONE (01:12)
[2017-04-02] MEDS ORDERED: ASPIRIN 325 MG TAB PO ONE (01:15)
[2017-04-02] MEDS ORDERED: HEPARIN SOD (PORCINE) 5000 UNITS/ML VIAL IV ONE (01:15)
[2017-04-02 02:05] VITALS: BP 92/63
--- NOTE | 2017-04-02 05:39 | ECGEPIP ---
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
--- NOTE | 2017-04-02 07:30 | REP ---
Clinical: Line placement. Comparison: 04/01/2017 and 11:03 p.m.. Findings: Right IJ line with tip in the SVC. Mediastinum and cardiac silhouette are stable. Diffuse chronic interstitial changes with superimposed interstitial edema and possible subtle basilar opacities cannot be excluded (right greater than left). No definite effusion. No pneumothorax. Skeletal structures stable. Impression: 1. Right IJ line in satisfactory position within the SVC. 2. Cannot exclude mild interstitial edema as well as subtle basilar opacities (right greater than left). Signed by Kei Hess MD 04/02/2017 07:21 A
== END 2017-04-02 02:17 | disposition short-term general hospital (02) ==
LOC: M ED 22:42
DX: I21.4 Non-ST elevation (NSTEMI) myocardial infarction (principal); I10 Essential (primary) hypertension; K21.9 Gastro-esophageal reflux disease without esophagitis; E03.9 Hypothyroidism, unspecified; Z79.899 Other long term (current) drug therapy
CPT/HCPCS: 36556; 71010; 80048; 82550; 82553; 83605; 83880; 84484; 85025; 87040; 93005; 96374; 96375; 99285; J1940

== ENCOUNTER → 2017-04-19 | Outpatient (REF) ==
[~2017-04-19] MED LIST changes: +ACEP650S PR; +BISA10SU5 PR; +ENEM1ENE4 PR; +MAGN64TASA PO; +MILKSUS PO; +POTA10SO11 PO; +RANI1TAB38 PO; +SENN-23 PO; +TYLE325T5 PO
[2017-04-19 09:55] LABS: MEAN CORPUSCULAR HEMOGLOBIN 25.9 pg (27.0-33.0); MEAN CORPUSCULAR HGB CONC 31.1 g/dl (32.0-36.5); MEAN CORPUSCULAR VOLUME 83.3 fl (80.0-96.0); RED CELL DISTRIBUTION WIDTH 16.3 % (11.5-14.5); WHITE BLOOD COUNT 8.6 K/mm3 (4.0-10.0)
[2017-04-19 10:16] LABS: ALBUMIN 2.6 GM/DL (3.2-5.2); ALBUMIN/GLOBULIN RATIO 0.55 (1.00-1.93); ALKALINE PHOSPHATASE 84 U/L (45-117); ALT/SGPT 44 U/L (12-78); ANION GAP 11 MEQ/L (8-16); AST/SGOT 43 U/L (15-37); BILIRUBIN,TOTAL 0.6 MG/DL (0.2-1.0); BLOOD UREA NITROGEN 20 MG/DL (7-18); CALCIUM LEVEL 8.7 MG/DL (8.8-10.2); CARBON DIOXIDE LEVEL 23 MEQ/L (21-32); CHLORIDE LEVEL 109 MEQ/L (98-107); CREATININE FOR GFR 1.11 MG/DL (0.70-1.30); GLOMERULAR FILTRATION RATE > 60.0 (>49); GLUCOSE, FASTING 121 MG/DL (80-110); POTASSIUM SERUM 4.1 MEQ/L (3.5-5.1); SODIUM LEVEL 143 MEQ/L (136-145); TOTAL PROTEIN 7.3 GM/DL (6.4-8.2)
--- NOTE | 2017-04-19 14:38 | ECGEPIP ---
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
== END ==
LOC: SKLAB2 07:12
DX: I10 Essential (primary) hypertension (principal)

== ENCOUNTER → 2017-05-03 | Outpatient (CLI) | payer MEDICARE, MEDICAID | LOC: M CARPUL 08:24 | DX: J20.9 Acute bronchitis, unspecified (principal); E78.00 Pure hypercholesterolemia, unspecified; I10 Essential (primary) hypertension; E03.9 Hypothyroidism, unspecified; K21.9 Gastro-esophageal reflux disease without esophagitis ==

== ENCOUNTER → 2017-05-17 | Outpatient (CLI) | payer MEDICARE, MEDICAID ==
--- NOTE | 2017-05-17 22:57 | ECHO ---
DATE OF PROCEDURE: 05/17/2017 REFERRING PHYSICIAN: Dr. Garsia INDICATION: Pericardial effusion. PATIENT LOCATION: Outpatient. HEIGHT: 180 cm/s WEIGHT: 91 kg DIMENSIONS: IVS: 1.2 LV: 4.3 LVPW: 1.2 LA: 3.6 Aorta: 3.1 FINDINGS: The study is of limited technical quality with very difficult visualization. Left ventricle is of normal size. Overall, there is probably going to be normal or near normal left ventricle (LV) systolic function, but the visualization was very poor. There appears to be at least septal wall motion abnormality, but I certainly cannot rule out additional abnormalities in the apex and anterior wall. Right ventricle does not appear grossly enlarged, but also was poorly seen. Both atria are probably normal size. Aortic valve is sclerotic, but seems to have preserved mobility. There are also degenerative abnormalities of mitral valve with mitral annular calcifications. Tricuspid valve appears normal. Pulmonic valve was not well seen. No pericardial effusion is noted. Inferior vena cava is normal size. Aortic root is normal. Aortic arch and abdominal aorta were not well seen. Left pleural effusion is noted. Doppler interrogation reveals no significant aortic stenosis or insufficiency. There is also no significant mitral valve disease. Tricuspid valve is also functionally competent. Mitral inflow pattern and tissue Doppler imaging of mitral annulus is inconclusive for evaluation of diastolic function. There is fusion of E and A-wave on mitral inflow, likely due to first-degree atrioventricular (AV) block. E velocity though is 161 cm/sec and the deceleration time is rather brief indicative of likely advanced diastolic dysfunction. E prime septal velocity is 5.4 and A prime lateral 10.9 cm/s. CONCLUSIONS: 1. Study is of difficult and limited technical quality. 2. Normal LV size with mild left ventricular hypertrophy (LVH) and probably normal or near normal LV systolic function. Septal wall motion abnormality of uncertain etiology. 3. Likely advanced diastolic dysfunction, fusion of E and A-wave on mitral inflow. 4. No significant valvular disease. 5. Normal central venous pressure. 6. Unable to estimate pulmonary artery pressure. 7. No pericardial effusion. 8. Left pleural effusion. COMMENT: Subacute bacterial endocarditis (SBE) prophylaxis is not recommended.
== END ==
LOC: M CARPUL 09:48
DX: J90 Pleural effusion, not elsewhere classified (principal); I31.3 Pericardial effusion (noninflammatory); J42 Unspecified chronic bronchitis; D64.9 Anemia, unspecified; I10 Essential (primary) hypertension; E03.9 Hypothyroidism, unspecified; K21.9 Gastro-esophageal reflux disease without esophagitis; Z79.01 Long term (current) use of anticoagulants

== ENCOUNTER → 2017-05-29 | Outpatient (REF) | payer MEDICARE, MEDICAID ==
[2017-05-29 13:48] LABS: PERCENT SATURATION 68.6 % (19.7-50.0)
--- NOTE | 2017-05-30 20:44 | ECGEPIP ---
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 Right bundle branch block No change from 04/19/17 Electronically Signed On 05-30-2017 20:44:36 EDT by Ciara Ferrari
== END ==
LOC: SKLAB2 08:40
DX: D64.9 Anemia, unspecified (principal); I49.8 Other specified cardiac arrhythmias

== ENCOUNTER → 2017-06-18 | Outpatient (REF) | payer MEDICARE, MEDICAID ==
[2017-06-18 09:29] LABS: MEAN CORPUSCULAR HGB CONC 31.1 g/dl (32.0-36.5); MEAN CORPUSCULAR VOLUME 83.7 fl (80.0-96.0); PLATELET COUNT, AUTOMATED 277 10^3/uL (150-450); RED CELL DISTRIBUTION WIDTH 16.5 % (11.5-14.5); WHITE BLOOD COUNT 8.6 10^3/uL (4.0-10.0)
[2017-06-18 10:27] LABS: ANION GAP 10 MEQ/L (8-16); BLOOD UREA NITROGEN 19 MG/DL (7-18); CALCIUM LEVEL 9.1 MG/DL (8.8-10.2); CARBON DIOXIDE LEVEL 24 MEQ/L (21-32); CHLORIDE LEVEL 106 MEQ/L (98-107); CREATININE FOR GFR 1.25 MG/DL (0.70-1.30); GLOMERULAR FILTRATION RATE > 60.0 (>49); GLUCOSE, FASTING 124 MG/DL (80-110); POTASSIUM SERUM 3.9 MEQ/L (3.5-5.1); SODIUM LEVEL 140 MEQ/L (136-145)
== END ==
LOC: SKLAB2 07:30
DX: I10 Essential (primary) hypertension (principal); D64.9 Anemia, unspecified

== ENCOUNTER → 2017-07-16 | Outpatient (REF) | payer MEDICARE, MEDICAID ==
[2017-07-16 09:04] LABS: ANION GAP 8 MEQ/L (8-16); BLOOD UREA NITROGEN 21 MG/DL (7-18); CALCIUM LEVEL 9.3 MG/DL (8.8-10.2); CARBON DIOXIDE LEVEL 26 MEQ/L (21-32); CHLORIDE LEVEL 105 MEQ/L (98-107); CREATININE FOR GFR 1.14 MG/DL (0.70-1.30); GLOMERULAR FILTRATION RATE > 60.0 (>49); GLUCOSE, FASTING 84 MG/DL (80-110); POTASSIUM SERUM 4.5 MEQ/L (3.5-5.1); SODIUM LEVEL 139 MEQ/L (136-145)
== END ==
LOC: SKLAB2 07:30
DX: I10 Essential (primary) hypertension (principal)

== ENCOUNTER → 2017-08-07 | Outpatient (REF) | payer MEDICARE, MEDICAID ==
[2017-08-07 11:22] LABS: ESTIMATED AVERAGE GLUCOSE 126 MG/DL (60-110)
== END ==
LOC: SKLAB2 10:07
DX: E11.9 Type 2 diabetes mellitus without complications (principal)
CPT/HCPCS: 83036

== ENCOUNTER → 2017-09-17 | Outpatient (REF) | payer MEDICARE, MEDICAID ==
[2017-09-17 09:21] LABS: HEMATOCRIT 42.7 % (42.0-52.0); HEMOGLOBIN 13.6 g/dl (14.0-18.0); MEAN CORPUSCULAR HEMOGLOBIN 26.1 pg (27.0-33.0); MEAN CORPUSCULAR HGB CONC 31.9 g/dl (32.0-36.5); PLATELET COUNT, AUTOMATED 271 10^3/uL (150-450); RED BLOOD COUNT 5.21 10^6/uL (4.30-6.10); RED CELL DISTRIBUTION WIDTH 16.9 % (11.5-14.5); WHITE BLOOD COUNT 8.5 10^3/uL (4.0-10.0)
[2017-09-17 09:45] LABS: ANION GAP 8 MEQ/L (8-16); BLOOD UREA NITROGEN 41 MG/DL (7-18); CALCIUM LEVEL 9.1 MG/DL (8.8-10.2); CARBON DIOXIDE LEVEL 27 MEQ/L (21-32); CHLORIDE LEVEL 105 MEQ/L (98-107); CREATININE FOR GFR 1.44 MG/DL (0.70-1.30); GLOMERULAR FILTRATION RATE 52.1 (>49); GLUCOSE, FASTING 102 MG/DL (70-100); POTASSIUM SERUM 5.1 MEQ/L (3.5-5.1); SODIUM LEVEL 140 MEQ/L (136-145)
== END ==
LOC: SKLAB2 07:30
DX: I10 Essential (primary) hypertension (principal); D64.9 Anemia, unspecified
CPT/HCPCS: 84443

== ENCOUNTER → 2017-09-24 | Outpatient (REF) | payer MEDICARE, MEDICAID ==
[2017-09-24 09:15] LABS: ANION GAP 8 MEQ/L (8-16); BLOOD UREA NITROGEN 35 MG/DL (7-18); CARBON DIOXIDE LEVEL 26 MEQ/L (21-32); CHLORIDE LEVEL 106 MEQ/L (98-107); CREATININE FOR GFR 1.39 MG/DL (0.70-1.30); GLOMERULAR FILTRATION RATE 54.3 (>49); GLUCOSE, FASTING 92 MG/DL (70-100); POTASSIUM SERUM 4.9 MEQ/L (3.5-5.1); SODIUM LEVEL 140 MEQ/L (136-145)
== END ==
LOC: SKLAB2 07:00
DX: I10 Essential (primary) hypertension (principal)
CPT/HCPCS: 36415

== ENCOUNTER → 2017-12-17 | Outpatient (REF) | payer MEDICARE, MEDICAID ==
[2017-12-17 08:11] LABS: HEMATOCRIT 39.9 % (42.0-52.0); HEMOGLOBIN 12.6 g/dl (13.5-17.5); MEAN CORPUSCULAR HGB CONC 31.6 g/dl (32.0-36.5); MEAN CORPUSCULAR VOLUME 88.7 fl (80.0-96.0); PLATELET COUNT, AUTOMATED 252 10^3/uL (150-450); RED CELL DISTRIBUTION WIDTH 14.6 % (11.5-14.5); WHITE BLOOD COUNT 8.9 10^3/uL (4.0-10.0)
[2017-12-17 08:43] LABS: ANION GAP 6 MEQ/L (8-16); BLOOD UREA NITROGEN 34 MG/DL (7-18); CARBON DIOXIDE LEVEL 24 MEQ/L (21-32); CHLORIDE LEVEL 111 MEQ/L (98-107); CREATININE FOR GFR 1.38 MG/DL (0.70-1.30); GLOMERULAR FILTRATION RATE 54.7 (>49); GLUCOSE, FASTING 90 MG/DL (70-100); POTASSIUM SERUM 4.6 MEQ/L (3.5-5.1); SODIUM LEVEL 141 MEQ/L (136-145)
== END ==
LOC: SKLAB2 07:00
DX: D64.9 Anemia, unspecified (principal); I10 Essential (primary) hypertension
CPT/HCPCS: 84443

== ENCOUNTER → 2018-02-01 | Outpatient (REF) | payer MEDICARE, MEDICAID ==
[2018-02-01 14:38] LABS: ANION GAP 9 MEQ/L (8-16); BLOOD UREA NITROGEN 32 MG/DL (7-18); CALCIUM LEVEL 8.6 MG/DL (8.8-10.2); CARBON DIOXIDE LEVEL 24 MEQ/L (21-32); CHLORIDE LEVEL 108 MEQ/L (98-107); CREATININE FOR GFR 1.35 MG/DL (0.70-1.30); GLOMERULAR FILTRATION RATE 56.1 (>49); GLUCOSE, FASTING 110 MG/DL (70-100); NT-PRO BNP 582 PG/ML (<125); POTASSIUM SERUM 4.8 MEQ/L (3.5-5.1); SODIUM LEVEL 141 MEQ/L (136-145)
== END ==
LOC: SKLAB2 07:00
DX: R60.9 Edema, unspecified (principal)
CPT/HCPCS: 36415

== ENCOUNTER → 2018-02-08 | Outpatient (REF) | payer MEDICARE, MEDICAID ==
[2018-02-08 13:24] LABS: ANION GAP 7 MEQ/L (8-16); BLOOD UREA NITROGEN 55 MG/DL (7-18); CALCIUM LEVEL 9.3 MG/DL (8.8-10.2); CARBON DIOXIDE LEVEL 29 MEQ/L (21-32); CHLORIDE LEVEL 104 MEQ/L (98-107); CREATININE FOR GFR 1.85 MG/DL (0.70-1.30); GLUCOSE, FASTING 97 MG/DL (70-100); POTASSIUM SERUM 4.7 MEQ/L (3.5-5.1); SODIUM LEVEL 140 MEQ/L (136-145)
[2018-02-08 13:59] LABS: BASO # 0.1 10^3/uL (0.0-0.2); BASO % 0.6 % (0.0-1.0); EOS # 0.3 10^3/uL (0.0-0.50); HEMATOCRIT 40.2 % (42.0-52.0); IMMATURE GRANULOCYTE % 0.4 % (0-3.0); LYMPH # 1.8 10^3/uL (1.5-4.5); LYMPH % 22.2 % (24.0-44.0); MEAN CORPUSCULAR HEMOGLOBIN 27.5 pg (27.0-33.0); MEAN CORPUSCULAR HGB CONC 32.3 g/dl (32.0-36.5); MONO # 0.8 10^3/uL (0.0-0.8); NEUTROPHILS # 5.2 10^3/uL (1.8-7.7); NEUTROPHILS % 62.8 % (36.0-66.0); PLATELET COUNT, AUTOMATED 291 10^3/uL (150-450); RED BLOOD COUNT 4.73 10^6/uL (4.30-6.10); RED CELL DISTRIBUTION WIDTH 13.9 % (11.5-14.5); WHITE BLOOD COUNT 8.3 10^3/uL (4.0-10.0)
== END ==
LOC: SKLAB2 11:19
DX: R22.1 Localized swelling, mass and lump, neck (principal)
CPT/HCPCS: 80048

== ENCOUNTER → 2018-02-08 | Outpatient (CLI) | payer MEDICARE, MEDICAID | LOC: M RAD 09:08 | DX: R22.1 Localized swelling, mass and lump, neck (principal) | CPT/HCPCS: 70490 ==

== ENCOUNTER → 2018-02-15 | Outpatient (REF) | payer MEDICARE, MEDICAID | LOC: M LAB REF 16:44 | DX: C10.1 Malignant neoplasm of anterior surface of epiglottis (principal); R22.1 Localized swelling, mass and lump, neck | CPT/HCPCS: 80048; 88313 ==

== ENCOUNTER → 2018-02-18 | Outpatient (REF) | payer MEDICARE, MEDICAID ==
[2018-02-18 09:46] LABS: ANION GAP 9 MEQ/L (8-16); BLOOD UREA NITROGEN 60 MG/DL (7-18); CALCIUM LEVEL 9.1 MG/DL (8.8-10.2); CARBON DIOXIDE LEVEL 26 MEQ/L (21-32); CHLORIDE LEVEL 106 MEQ/L (98-107); CREATININE FOR GFR 1.61 MG/DL (0.70-1.30); GLOMERULAR FILTRATION RATE 45.8 (>49); GLUCOSE, FASTING 108 MG/DL (70-100); SODIUM LEVEL 141 MEQ/L (136-145)
[2018-02-18 09:56] LABS: POTASSIUM SERUM 5.2 MEQ/L (3.5-5.1)
== END ==
LOC: SKLAB2 07:00
DX: N18.9 Chronic kidney disease, unspecified (principal); E87.5 Hyperkalemia
CPT/HCPCS: 36415

== ENCOUNTER → 2018-02-22 | Outpatient (REF) | payer MEDICARE, MEDICAID ==
[2018-02-22 08:19] LABS: ANION GAP 8 MEQ/L (8-16); BLOOD UREA NITROGEN 42 MG/DL (7-18); CALCIUM LEVEL 8.5 MG/DL (8.8-10.2); CARBON DIOXIDE LEVEL 24 MEQ/L (21-32); CHLORIDE LEVEL 109 MEQ/L (98-107); CREATININE FOR GFR 1.31 MG/DL (0.70-1.30); GLOMERULAR FILTRATION RATE 58.1 (>49); GLUCOSE, FASTING 97 MG/DL (70-100); POTASSIUM SERUM 4.7 MEQ/L (3.5-5.1); SODIUM LEVEL 141 MEQ/L (136-145)
== END ==
LOC: SKLAB2 08:00
DX: N18.9 Chronic kidney disease, unspecified (principal); E87.5 Hyperkalemia
CPT/HCPCS: 36415

== ENCOUNTER → 2018-03-05 | Outpatient (CLI) | payer MEDICARE, MEDICAID | LOC: M ONCR 10:05 | DX: C32.1 Malignant neoplasm of supraglottis (principal) | CPT/HCPCS: G0463 ==

== ENCOUNTER → 2018-03-12 | Outpatient (CLI) | payer MEDICARE, MEDICAID | LOC: M PLARAD 11:40 | DX: C10.1 Malignant neoplasm of anterior surface of epiglottis (principal); C77.0 Secondary and unspecified malignant neoplasm of lymph nodes of head, face and neck | CPT/HCPCS: 78815 ==

== ENCOUNTER → 2018-03-18 | Outpatient (REF) | payer MEDICARE, MEDICAID ==
[2018-03-18 08:06] LABS: HEMATOCRIT 32.9 % (42.0-52.0); HEMOGLOBIN 10.4 g/dl (13.5-17.5); MEAN CORPUSCULAR HEMOGLOBIN 26.4 pg (27.0-33.0); MEAN CORPUSCULAR HGB CONC 31.6 g/dl (32.0-36.5); MEAN CORPUSCULAR VOLUME 83.5 fl (80.0-96.0); PLATELET COUNT, AUTOMATED 329 10^3/uL (150-450); RED BLOOD COUNT 3.94 10^6/uL (4.30-6.10); RED CELL DISTRIBUTION WIDTH 14.7 % (11.5-14.5); WHITE BLOOD COUNT 7.4 10^3/uL (4.0-10.0)
[2018-03-18 08:32] LABS: ANION GAP 9 MEQ/L (8-16); BLOOD UREA NITROGEN 20 MG/DL (7-18); CALCIUM LEVEL 8.8 MG/DL (8.8-10.2); CARBON DIOXIDE LEVEL 25 MEQ/L (21-32); CHLORIDE LEVEL 108 MEQ/L (98-107); GLOMERULAR FILTRATION RATE > 60.0 (>49); GLUCOSE, FASTING 90 MG/DL (70-100); POTASSIUM SERUM 4.7 MEQ/L (3.5-5.1); SODIUM LEVEL 142 MEQ/L (136-145)
== END ==
LOC: SKLAB2 07:30
DX: D64.9 Anemia, unspecified (principal); I10 Essential (primary) hypertension
CPT/HCPCS: 84443

== ENCOUNTER → 2018-05-13 | Outpatient (REF) | payer MEDICARE, MEDICAID ==
[2018-05-13 09:18] LABS: ALBUMIN/GLOBULIN RATIO 0.77 (1.00-1.93); ALKALINE PHOSPHATASE 63 U/L (45-117); ALT/SGPT 18 U/L (12-78); AST/SGOT 20 U/L (7-37); BILIRUBIN,DIRECT 0.1 MG/DL (0.0-0.2); BILIRUBIN,TOTAL 0.3 MG/DL (0.2-1.0); CHOLESTEROL LEVEL 97 MG/DL (<200); CHOLESTEROL RISK RATIO 2.939 (<5); HDL CHOLESTEROL 33 MG/DL (>40); LDL CHOLESTEROL 39 MG/DL (<100); NON-HDL-C 64 MG/DL; TOTAL PROTEIN 6.9 GM/DL (6.4-8.2); TRIGLYCERIDES LEVEL 126 MG/DL (<150)
== END ==
LOC: SKLAB2 07:00
DX: E78.5 Hyperlipidemia, unspecified (principal)
CPT/HCPCS: 80076

== ENCOUNTER → 2018-05-15 | Outpatient (REF) | payer MEDICARE, MEDICAID | LOC: SKLAB2 13:20 | DX: M17.11 Unilateral primary osteoarthritis, right knee (principal) | CPT/HCPCS: 73564 ==

== ENCOUNTER → 2018-05-20 | Outpatient (REF) | payer MEDICARE, MEDICAID ==
[2018-05-20 08:20] LABS: HEMATOCRIT 31.9 % (42.0-52.0); HEMOGLOBIN 10.1 g/dl (13.5-17.5); MEAN CORPUSCULAR HEMOGLOBIN 25.6 pg (27.0-33.0); MEAN CORPUSCULAR HGB CONC 31.7 g/dl (32.0-36.5); MEAN CORPUSCULAR VOLUME 80.8 fl (80.0-96.0); PLATELET COUNT, AUTOMATED 360 10^3/uL (150-450); RED BLOOD COUNT 3.95 10^6/uL (4.30-6.10); RED CELL DISTRIBUTION WIDTH 15.2 % (11.5-14.5); WHITE BLOOD COUNT 11.3 10^3/uL (4.0-10.0)
[2018-05-20 08:45] LABS: ANION GAP 8 MEQ/L (8-16); BLOOD UREA NITROGEN 31 MG/DL (7-18); CALCIUM LEVEL 8.9 MG/DL (8.8-10.2); CARBON DIOXIDE LEVEL 29 MEQ/L (21-32); CHLORIDE LEVEL 103 MEQ/L (98-107); CREATININE FOR GFR 1.08 MG/DL (0.70-1.30); GLOMERULAR FILTRATION RATE > 60.0 (>49); GLUCOSE, FASTING 88 MG/DL (70-100); POTASSIUM SERUM 4.7 MEQ/L (3.5-5.1); SODIUM LEVEL 140 MEQ/L (136-145)
== END ==
LOC: SKLAB2 07:00
DX: Z93.1 Gastrostomy status (principal); Z79.899 Other long term (current) drug therapy
CPT/HCPCS: 80048

== ENCOUNTER → 2018-06-09 | Outpatient (REF) | payer MEDICARE, MEDICAID ==
[2018-06-09 08:43] LABS: HEMOGLOBIN 8.9 g/dl (13.5-17.5); MEAN CORPUSCULAR HEMOGLOBIN 26.1 pg (27.0-33.0); MEAN CORPUSCULAR HGB CONC 31.8 g/dl (32.0-36.5); MEAN CORPUSCULAR VOLUME 82.1 fl (80.0-96.0); PLATELET COUNT, AUTOMATED 266 10^3/uL (150-450); RED BLOOD COUNT 3.41 10^6/uL (4.30-6.10); RED CELL DISTRIBUTION WIDTH 16.7 % (11.5-14.5); WHITE BLOOD COUNT 8.8 10^3/uL (4.0-10.0)
[2018-06-09 09:02] LABS: ANION GAP 6 MEQ/L (8-16); BLOOD UREA NITROGEN 49 MG/DL (7-18); CALCIUM LEVEL 8.6 MG/DL (8.8-10.2); CARBON DIOXIDE LEVEL 29 MEQ/L (21-32); CHLORIDE LEVEL 105 MEQ/L (98-107); CREATININE FOR GFR 1.16 MG/DL (0.70-1.30); GLOMERULAR FILTRATION RATE > 60.0 (>49); GLUCOSE, FASTING 108 MG/DL (70-100); SODIUM LEVEL 140 MEQ/L (136-145)
[2018-06-09 11:25] LABS: IRON (FE) 83 UG/DL (65-175); PERCENT SATURATION 33.3 % (19.7-50.0); TOTAL IRON BINDING CAPACITY 249 UG/DL (250-450)
[2018-06-09 11:45] LABS: RETIC HEMOGLOBIN EQUIVALENT 27.3 pg (24-36); RETICULOCYTE # 68.5 10^9/L (17-77)
== END ==
LOC: SKLAB2 08:02
DX: Z93.1 Gastrostomy status (principal); D64.9 Anemia, unspecified; C10.1 Malignant neoplasm of anterior surface of epiglottis; C32.1 Malignant neoplasm of supraglottis; C77.0 Secondary and unspecified malignant neoplasm of lymph nodes of head, face and neck
CPT/HCPCS: 83550

== ENCOUNTER → 2018-06-11 | Outpatient (REF) | payer MEDICARE, MEDICAID ==
[2018-06-11 07:24] LABS: HEMATOCRIT 28.6 % (42.0-52.0); HEMOGLOBIN 8.9 g/dl (13.5-17.5); MEAN CORPUSCULAR HEMOGLOBIN 25.6 pg (27.0-33.0); MEAN CORPUSCULAR HGB CONC 31.1 g/dl (32.0-36.5); MEAN CORPUSCULAR VOLUME 82.2 fl (80.0-96.0); PLATELET COUNT, AUTOMATED 238 10^3/uL (150-450); RED BLOOD COUNT 3.48 10^6/uL (4.30-6.10); RED CELL DISTRIBUTION WIDTH 16.7 % (11.5-14.5); WHITE BLOOD COUNT 4.7 10^3/uL (4.0-10.0)
== END ==
LOC: SKLAB2 08:47
DX: D64.9 Anemia, unspecified (principal)
CPT/HCPCS: 85027

== ENCOUNTER → 2018-06-17 | Outpatient (REF) | payer MEDICARE, MEDICAID | LOC: SKLAB2 07:00 | DX: D64.9 Anemia, unspecified (principal) | CPT/HCPCS: 84443 ==

== ENCOUNTER → 2018-06-18 | Outpatient (REF) | payer MEDICARE, MEDICAID ==
[2018-06-18 14:52] LABS: HEMATOCRIT 25.2 % (42.0-52.0); HEMOGLOBIN 8.2 g/dl (13.5-17.5); MEAN CORPUSCULAR HEMOGLOBIN 26.3 pg (27.0-33.0); MEAN CORPUSCULAR HGB CONC 32.5 g/dl (32.0-36.5); MEAN CORPUSCULAR VOLUME 80.8 fl (80.0-96.0); PLATELET COUNT, AUTOMATED 242 10^3/uL (150-450); RED BLOOD COUNT 3.12 10^6/uL (4.30-6.10); RED CELL DISTRIBUTION WIDTH 17.6 % (11.5-14.5); WHITE BLOOD COUNT 2.9 10^3/uL (4.0-10.0)
== END ==
LOC: SKLAB2 08:00
DX: D64.9 Anemia, unspecified (principal)
CPT/HCPCS: 85027